=== PATIENT | male | born 1940 | race Caucasian/White ===

== ENCOUNTER → 2016-06-25 | Outpatient (CLI) | payer MEDICARE, BC ==
[~2016-06-25] MED LIST: ACULAR 10 ML10 ML OP; ASPIR-LOW81 MG PO; ASPIRIN 32325 MG/TA1 PO; ASPIRIN 81M81 MG/TA2 PO; ASPIRIN E.C. 8181 MG PO; ATENOLOL50 MG PO; CARDIZEM CD 12120 MG PO; CATAPRES-T0.3 MG/24 TD; CATAPRES-TTS 30.3 MG TD; CILOXAN 5 ML5 ML OP; COREG 25MG25 MG/TAB PO; COZAAR 50MG50 MG/TAB PO; FORTAMET500 MG PO; GLUCOPHAGE500 MG/TAB PO; HCTZ 25MG TAB25 MG PO; HCTZ 25MG25 MG PO; HYTRIN10 MG PO; INSULIN SQ; LANTUS100 U/ML SQ; LASIX 40MG TABL40 MG PO; LEVAQUIN 5500 MG/TA1 PO; LIPITOR 80MG80 MG PO; LISINOPRIL20 MG PO; MULTAQ400 MG PO; NEURONTIN100 MG/CAP PO; NITROSTAT0.4 MG/TAB SL; NOVOLOG 100U100 U/M1 SQ; NOVOLOG 100U100 U/ML SQ; OMNICEF 300MG300 MG PO; PERCOCET 325 MG1 TA2 PO; PLAVIX 75MG TAB75 MG PO; PLENDIL 2.5MG2.5 MG PO; PRILOSEC 20MG20 MG PO; REFRESH TEARS 115 ML OP; SYNTHROID0.075 MG/T PO; TERAZOSIN HCL PO; TYLENOL PM EXTR1 TA1 PO; TYLENOL PM PO; VALTREX 50500 MG/TAB PO; VENTOLIN0.09 MG IH; ZOCOR 40MG40 MG PO; ZOCOR 80MG80 MG PO; ZOCOR80 MG PO
== END ==
LOC: COL.RAD 08:02
DX: K30 Functional dyspepsia (principal); R13.19 Other dysphagia; K29.70 Gastritis, unspecified, without bleeding
CPT/HCPCS: A9541

== ENCOUNTER 2017-11-04 09:03 | Outpatient (CLI) | payer MEDICARE, BC ==
[~2017-11-04] VITALS: Ht 175.3 cm; Wt 108.3 kg
[~2017-11-04 09:03] MED LIST changes: +CORDARONE200 MG/TAB PO; +ELIQUIS 5MG PO; +HYTRIN10 M1 PO; +IMDUR 30MG30 MG/TAB PO; +INSLANT SQ; +NORCO 325 MG-51 TAB PO
[2017-11-04 09:45] VITALS: BP 110/78; PULSE 78; TEMP 98
[2017-11-04] MEDS ORDERED: LASIX 20MG TABL20 MG PO (09:47)
[2017-11-04] MEDS ORDERED: PROAIR HFA0.09 MG/AC IH (09:55)
[2017-11-04] MEDS ORDERED: ZYRTEC 10MG10 MG PO (09:56)
[2017-11-04] MEDS ORDERED: NORVASC 10MG10 MG PO (09:56)
[2017-11-04] MEDS ORDERED: FERROUS SU325 MG/TAB PO (09:57)
[2017-11-04] MEDS ORDERED: COZAAR100 MG PO (09:58)
[2017-11-04] MEDS ORDERED: NASONEX SPRAY17 GM NS (09:59)
[2017-11-04] MEDS ORDERED: HYTRIN10 M1 PO (10:04)
[2017-11-04] MEDS ORDERED: CEPHALEXIN500 M1 PO (10:29)
== END 2017-11-04 11:35 | disposition home or self-care (01) ==
LOC: COL.CAR 09:03
DX: I48.0 Paroxysmal atrial fibrillation (principal); R00.1 Bradycardia, unspecified; I25.10 Atherosclerotic heart disease of native coronary artery without angina pectoris; I73.9 Peripheral vascular disease, unspecified; I10 Essential (primary) hypertension; E11.9 Type 2 diabetes mellitus without complications; E78.5 Hyperlipidemia, unspecified; E03.9 Hypothyroidism, unspecified; G47.33 Obstructive sleep apnea (adult) (pediatric); M19.90 Unspecified osteoarthritis, unspecified site; G89.29 Other chronic pain; Z88.8 Allergy status to other drugs, medicaments and biological substances; Z79.82 Long term (current) use of aspirin; Z79.01 Long term (current) use of anticoagulants; Z79.4 Long term (current) use of insulin; Z87.891 Personal history of nicotine dependence; Z85.828 Personal history of other malignant neoplasm of skin; Z82.49 Family history of ischemic heart disease and other diseases of the circulatory system
CPT/HCPCS: 27124; C1764

== ENCOUNTER 2018-02-06 15:03 | Emergency (ER) | payer MEDICARE, BC ==
[~2018-02-06] VITALS: Ht 177.8 cm; Wt 104.1 kg
[~2018-02-06 15:03] MED LIST changes: +CEPHALEXIN500 M1 PO; +COZAAR100 MG PO; +FERROUS SU325 MG/TAB PO; +LASIX 20MG TABL20 MG PO; +NASONEX SPRAY17 GM NS; +NORVASC 10MG10 MG PO; +PROAIR HFA0.09 MG/AC IH; +ZYRTEC 10MG10 MG PO
[2018-02-06 15:06] VITALS: BP 135/60; TEMP 98.2
[2018-02-06 16:00] LABS: ALANINE AMINOTRANSFERASE 30 U/L (21-72); ALBUMIN 3.7 gm/dL (3.5-5.0); ALKALINE PHOSPHATASE 90 U/L (50-136); ANION GAP 12 mmol/L (7-16); AST,SGOT 17 U/L (15-37); BILIRUBIN,TOTAL 0.5 mg/dL (0.0-1.0); BLOOD UREA NITROGEN 25 mg/dL (9-20); CALCIUM 8.5 mg/dL (8.4-10.2); CARBON DIOXIDE 26 mmol/L (22-30); CHLORIDE 103 mmol/L (98-107); CREATININE, serum 1.64 mg/dL (0.66-1.25); GLUCOSE 142 mg/dL (74-106); POTASSIUM 4.5 mmol/L (3.4-5.0); SODIUM 141 mmol/L (137-145); TOTAL PROTEIN 6.8 gm/dL (6.4-8.2)
[2018-02-06 16:15] LABS: TROPONIN-I < 0.012 ng/mL (0.000-0.034)
[2018-02-06] MEDS ORDERED: KLOR-CON M1010 MEQ PO (16:38)
[2018-02-06 16:51] LABS: BASO % 0.6 % (0.0-2.0); EOS # 0.4 (0.0-0.7); EOS % 5.9 % (0-4.0); GRAN % 69.7 % (42.2-75.2); HEMOGLOBIN 10.8 g/dl (13.5-18.0); LYMPH # 1.1 (1.2-3.4); LYMPH % 15.7 % (20.0-51.0); MEAN CELL VOLUME 97 fl (80.0-100.0); MEAN CORPUSCULAR HEMOGLOBIN 31 pg (27.0-31.0); MEAN CORPUSCULAR HGB CONC 32 g/dl (33.0-37.0); MEAN PLATELET VOLUME 11.2 fl (7.4-10.4); MONO # 0.6 (0.1-0.6); MONO % 7.8 % (1.7-9.3); PLATELET COUNT 193 K/mm3 (130-400); RED BLOOD COUNT 3.47 M/mm3 (4.20-5.60); REDCELL DISTRIBUTION WIDTH-CV 13.2 % (11.5-14.5)
[2018-02-06 16:58] LABS: HEMATOCRIT 33.5 % (42.0-52.0)
[2018-02-06] MEDS ORDERED: NORCO 325 MG-51 TAB PO (17:21)
[2018-02-06 17:26] LABS: C-REACTIVE PROTEIN 0.8 mg/dL (0.0-0.9)
[2018-02-06 17:36] VITALS: PULSE 64
== END 2018-02-06 17:36 | disposition home or self-care (01) ==
LOC: COL.ER 15:03
PROVIDERS: Emergency Medicine
DX: M25.571 Pain in right ankle and joints of right foot (principal); E11.9 Type 2 diabetes mellitus without complications; I10 Essential (primary) hypertension; I48.91 Unspecified atrial fibrillation; I25.10 Atherosclerotic heart disease of native coronary artery without angina pectoris; Z79.01 Long term (current) use of anticoagulants; Z79.4 Long term (current) use of insulin; Z79.82 Long term (current) use of aspirin

== ENCOUNTER 2018-03-02 08:08 | Day surgery (SDC) | payer MEDICARE, BC ==
[~2018-03-02] VITALS: Ht 177.8 cm; Wt 104.5 kg
[2018-03-02] VITALS (11 sets, daily range): BP systolic 127–156; BP diastolic 61–88; PULSE 59–100; TEMP 97.5–98.4
[~2018-03-02 08:08] MED LIST changes: +KLOR-CON M1010 MEQ PO
[2018-03-02] MEDS ORDERED: CORDARONE200 MG/TAB PO (08:32)
[2018-03-02 09:05] LABS: HEMATOCRIT 33.1 % (42.0-52.0); HEMOGLOBIN 10.7 g/dl (13.5-18.0); MEAN CELL VOLUME 97 fl (80.0-100.0); MEAN CORPUSCULAR HEMOGLOBIN 31 pg (27.0-31.0); MEAN CORPUSCULAR HGB CONC 32 g/dl (33.0-37.0); MEAN PLATELET VOLUME 10.1 fl (7.4-10.4); PLATELET COUNT 225 K/mm3 (130-400); RED BLOOD COUNT 3.42 M/mm3 (4.20-5.60); REDCELL DISTRIBUTION WIDTH-CV 13.3 % (11.5-14.5)
[2018-03-02 09:08] LABS: INR 1.4 (0.8-3.0); PROTHROMBIN TIME 16.2 SECONDS (9.7-12.8)
[2018-03-02 09:14] LABS: CALCIUM 8.7 mg/dL (8.4-10.2); CREATININE, serum 1.8 mg/dL (0.66-1.25); POTASSIUM 4.9 mmol/L (3.4-5.0)
[2018-03-03 00:42] VITALS: BP 153/61; PULSE 77
[2018-03-03 05:41] VITALS: BP 118/52; PULSE 59
[2018-03-03 07:56] VITALS: BP 111/48; PULSE 60; TEMP 97.3
[2018-03-03] MEDS ORDERED: CEPHALEXIN500 M1 PO (10:21)
== END 2018-03-03 13:07 | disposition home or self-care (01) ==
LOC: COL.CAR 08:08 → MEDICAL 14:30 → COL.CAR 03-03 13:07
PROVIDERS: Internal Medicine Cardiovascular Disease
DX: I49.5 Sick sinus syndrome (principal); I25.10 Atherosclerotic heart disease of native coronary artery without angina pectoris; I48.91 Unspecified atrial fibrillation; I10 Essential (primary) hypertension; E78.5 Hyperlipidemia, unspecified; G90.01 Carotid sinus syncope; I73.9 Peripheral vascular disease, unspecified; G47.33 Obstructive sleep apnea (adult) (pediatric); Z88.8 Allergy status to other drugs, medicaments and biological substances
CPT/HCPCS: OP; C1769; C1785; C1894; C1898; J0690; J1815; J2250; J2405; J3010; J7030

== ENCOUNTER 2018-03-23 20:59 | Emergency (ER) | payer MEDICARE, BC ==
[~2018-03-23] VITALS: Ht 177.8 cm; Wt 99.5 kg
[2018-03-23 21:04] VITALS: TEMP 97.7
[2018-03-23 21:51] LABS: BASO % 0.2 % (0.0-2.0); EOS # 0.3 (0.0-0.7); EOS % 2.1 % (0-4.0); GRAN % 81.9 % (42.2-75.2); HEMATOCRIT 32.6 % (42.0-52.0); HEMOGLOBIN 10.6 g/dl (13.5-18.0); LYMPH # 0.9 (1.2-3.4); LYMPH % 7.7 % (20.0-51.0); MEAN CELL VOLUME 97 fl (80.0-100.0); MEAN CORPUSCULAR HEMOGLOBIN 32 pg (27.0-31.0); MEAN CORPUSCULAR HGB CONC 33 g/dl (33.0-37.0); MEAN PLATELET VOLUME 10.2 fl (7.4-10.4); MONO # 0.9 (0.1-0.6); MONO % 7.6 % (1.7-9.3); PLATELET COUNT 223 K/mm3 (130-400); RED BLOOD COUNT 3.35 M/mm3 (4.20-5.60); REDCELL DISTRIBUTION WIDTH-CV 13.8 % (11.5-14.5)
[2018-03-23 22:04] LABS: ALBUMIN 3.9 gm/dL (3.5-5.0); BILIRUBIN,TOTAL 0.7 mg/dL (0.0-1.0); C-REACTIVE PROTEIN 1.6 mg/dL (0.0-0.9); CREATININE, serum 1.9 mg/dL (0.66-1.25); POTASSIUM 4.9 mmol/L (3.4-5.0)
[2018-03-23] MEDS ORDERED: VALTREX1 GM PO (23:10)
[2018-03-23] MEDS ORDERED: CEPHALEXIN500 M1 PO (23:10)
[2018-03-23 23:56] VITALS: BP 148/73; PULSE 81
== END 2018-03-23 23:56 | disposition home or self-care (01) ==
LOC: COL.ER 20:59
PROVIDERS: Emergency Medicine
DX: B02.9 Zoster without complications (principal); L76.22 Postprocedural hemorrhage of skin and subcutaneous tissue following other procedure; E11.9 Type 2 diabetes mellitus without complications; I10 Essential (primary) hypertension; I48.91 Unspecified atrial fibrillation; Z95.0 Presence of cardiac pacemaker; Z79.82 Long term (current) use of aspirin; Z79.4 Long term (current) use of insulin
CPT/HCPCS: J0690; J7040

== ENCOUNTER 2020-04-10 20:01 | Emergency (ER) | payer MEDICARE, BC ==
[~2020-04-10] VITALS: Ht 175.3 cm; Wt 100.0 kg
[~2020-04-10 20:01] MED LIST changes: +ATARAX 25MG25 MG/TAB PO; +CATAPRES-TTS 10.1 M1 TD; +ELIQUIS 2.5 PO; +HYDROCORTISON28.4 GM TP; +MELATONIN5 M1 SL; +NEURONTIN300 MG/CAP PO; +PHARMASSURE ZIN50 MG PO; +PREDNISONE20 MG PO; +TYLENOL 325MG325 MG PO; +TYLENOL 500MG500 MG PO; +VALTREX1 GM PO; +VITD3 PO; +ZINC OXIDE 28GM TOP
[2020-04-10 20:07] VITALS: TEMP 96.2
[2020-04-10 21:30] VITALS: BP 161/64; PULSE 60
== END 2020-04-10 21:30 | disposition home or self-care (01) ==
LOC: COL.ER 20:01
DX: S00.83XA Contusion of other part of head, initial encounter (principal); Z95.0 Presence of cardiac pacemaker; Z98.61 Coronary angioplasty status; Z95.9 Presence of cardiac and vascular implant and graft, unspecified; Z87.891 Personal history of nicotine dependence; Z88.8 Allergy status to other drugs, medicaments and biological substances; Z79.01 Long term (current) use of anticoagulants; W10.1XXA Fall (on)(from) sidewalk curb, initial encounter; Y92.017 Garden or yard in single-family (private) house as the place of occurrence of the external cause

== ENCOUNTER 2020-04-24 12:16 | Outpatient (RCR) | payer MEDICARE, BC ==
[2020-04-24] VITALS (9 sets, daily range): BP systolic 127–153; BP diastolic 53–79; PULSE 59–61; TEMP 97.8–98.8
[2020-04-24] MEDS ORDERED: MASON NATURAL2000 IU PO (15:21)
== END 2020-04-24 19:12 | disposition home or self-care (01) ==
LOC: EUO 12:16
DX: C96.5 Multifocal and unisystemic Langerhans-cell histiocytosis (principal); D64.9 Anemia, unspecified
CPT/HCPCS: J7050; P9016

== ENCOUNTER 2020-06-19 13:06 | Outpatient (RCR) | payer MEDICARE, BC ==
[2020-06-19] VITALS (10 sets, daily range): BP systolic 115–144; BP diastolic 46–97; PULSE 60–89; TEMP 97.5–98.7
[~2020-06-19 13:06] MED LIST changes: +MASON NATURAL2000 IU PO
--- NOTE | 2020-06-19 17:56 | NUR ---
Report to Fawn Dixon.
[2020-06-24] MEDS ORDERED: NORCO 325 MG-51 TAB PO (12:05)
== END 2020-06-25 07:31 | disposition home or self-care (01) ==
LOC: EUO 13:06
DX: D76.3 Other histiocytosis syndromes (principal)
CPT/HCPCS: J7050; P9016

== ENCOUNTER 2020-06-24 08:59 | Day surgery (SDC) | payer MEDICARE, BC ==
[~2020-06-24] VITALS: Ht 177.8 cm; Wt 97.3 kg
[2020-06-24 10:12] VITALS: BP 129/56; PULSE 86; TEMP 98.7
[2020-06-24 11:03] VITALS: BP 112/50; PULSE 70
--- NOTE | 2020-06-24 11:03 | NUR ---
Patient returns to room 2 per cart from surgery accompanied by Fernandez RN and Junior HIRSCH. Arouses to verbal stimuli. Room air sats 88% and placed on 6L per simple mask by Junior HIRSCH. Right port a catheter insertion site covered with Exofen dressing and area soft and wound edges well approximated. IV fluids infusing and siderails up x2. Will allow patient to rest.
[2020-06-24 11:18] VITALS: BP 158/64; PULSE 63
--- NOTE | 2020-06-24 11:18 | NUR ---
Patient continues to rest without complaints of pain and remains on oxygen at 6L per mask.
[2020-06-24 11:33] VITALS: BP 170/64; PULSE 59
--- NOTE | 2020-06-24 11:33 | NUR ---
Resting and not disturbed.
[2020-06-24] MEDS ORDERED: NORCO 325 MG-51 TAB PO (12:05)
[2020-06-24 12:58] VITALS: BP 164/64; PULSE 60
--- NOTE | 2020-06-24 12:58 | NUR ---
Awake and oxygen removed. Given applesauce to eat and grape juice to drink. Denies pain. Right port a catheter site soft and no drainage or bleeding noted.
--- NOTE | 2020-06-24 13:10 | NUR ---
Sitting up on the edge of the cart. IV discontinued and site is free of redness. Assisted patient with dressing. ABD and kerlix dressing on the right lower extremity dry. Sent home with extra dressing supplies to change as needed.
--- NOTE | 2020-06-24 13:45 | NUR ---
Dismissal instructions given and voices understanding of these. Assisted into wheelchair using walker.
--- NOTE | 2020-06-24 13:57 | NUR ---
Patient dismissed to home driven by friend and assisted into vehicle by this RN with instructions in hand.
--- NOTE | 2020-07-02 16:18 | NUR ---
(late entry) Light Oil Operator consulted for the patient. ELENITA met with the patient to discuss his needs. The patient reports the [facility] nurse visit approximately every 3 months. He report he also has a Light Oil Operator, Dietitian, and PA that follow for the [facility]. The patient discharged from [facility] on April 09, 2020. The patient has a wheelchair, lift chair. The patient is able to transfer on his own but uses a walker to assist. He reports plenty of support from neighbors and his members of the [facility]. They assist giving the patient rides. The patient would like to have [facility] for home health again. Referral faxed. He would also like the [facility] to visit more frequently. Larissa the [facility] Light Oil Operator reports the patient will be getting more services. Larissa reports the patient had not expressed the need for additional service before. Referral was sent to [facility]. Debra from [facility] reports she contacted the VA and was told that they would provide more services. ELENITA contacted Mona with [facility] and they could accept the patient but the patient stated that he would like the [facility] to provide the services.
== END 2020-06-24 13:57 | disposition home or self-care (01) ==
LOC: SDCO 08:59
DX: C96.6 Unifocal Langerhans-cell histiocytosis (principal); I13.0 Hypertensive heart and chronic kidney disease with heart failure and stage 1 through stage 4 chronic kidney disease, or unspecified chronic kidney disease; E11.40 Type 2 diabetes mellitus with diabetic neuropathy, unspecified; E11.22 Type 2 diabetes mellitus with diabetic chronic kidney disease; N18.30 Chronic kidney disease, stage 3 unspecified; I25.10 Atherosclerotic heart disease of native coronary artery without angina pectoris; Z20.822 Contact with and (suspected) exposure to COVID-19; E11.51 Type 2 diabetes mellitus with diabetic peripheral angiopathy without gangrene; D63.0 Anemia in neoplastic disease; D63.1 Anemia in chronic kidney disease; I48.91 Unspecified atrial fibrillation; E03.9 Hypothyroidism, unspecified; G47.33 Obstructive sleep apnea (adult) (pediatric); K21.9 Gastro-esophageal reflux disease without esophagitis; G47.00 Insomnia, unspecified; G89.29 Other chronic pain; M25.561 Pain in right knee; Z79.890 Hormone replacement therapy; Z95.0 Presence of cardiac pacemaker; Z79.82 Long term (current) use of aspirin; Z79.01 Long term (current) use of anticoagulants; Z79.4 Long term (current) use of insulin; Z85.828 Personal history of other malignant neoplasm of skin; Z79.02 Long term (current) use of antithrombotics/antiplatelets; Z79.899 Other long term (current) drug therapy; Z85.820 Personal history of malignant melanoma of skin
CPT/HCPCS: C1788; J0690; J1644; J2704; J3010; J7030

== ENCOUNTER 2020-07-02 14:51 | Emergency (ER) | payer MEDICARE, BC ==
[~2020-07-02] VITALS: Ht 175.3 cm; Wt 97.3 kg
[2020-07-02 16:09] LABS: MEAN CELL VOLUME 91 fl (80.0-100.0); MEAN CORPUSCULAR HGB CONC 31 g/dl (33.0-37.0); MEAN PLATELET VOLUME 9.9 fl (7.4-10.4); PLATELET COUNT 383 K/mm3 (130-400); RED BLOOD COUNT 3.14 M/mm3 (4.20-5.60); REDCELL DISTRIBUTION WIDTH-CV 17.1 % (11.5-14.5)
[2020-07-02 16:14] LABS: HEMATOCRIT 28.7 % (42.0-52.0); HEMOGLOBIN 8.8 g/dl (13.5-18.0); MEAN CORPUSCULAR HEMOGLOBIN 28 pg (27.0-31.0)
[2020-07-02 16:17] LABS: ALBUMIN 2.5 gm/dL (3.5-5.0); BILIRUBIN,TOTAL 0.5 mg/dL (0.0-1.0); CALCIUM 9.5 mg/dL (8.4-10.2); CREATININE, serum 2.18 (0.66-1.25); TOTAL PROTEIN 5.3 gm/dL (6.4-8.2)
--- NOTE | 2020-07-02 16:28 | NUR ---
Semiconductor Wafers Tester consulted for the patient regarding assistance for care at home for leg and bottom wounds. ELENITA contacted Debra with [facility] to inquire about the [facility] contacting them regarding services. Debra states the VA has reached out to them for bathe aides and companionship services. ELENITA discussed the need for home health nursing services. Debra to contact the patient's PCP in order to start nursing services for the patient's needs. She will follow up with this SW on 07/03. ELENITA voiced the urgency to have a nurse follow up with the patient. ELENITA contacted and left message with Larissa, the VA SW regarding the urgency and seriousness of following up with the patient. ELENITA collaborated the above information with the ED PA.
[2020-07-02 16:37] LABS: BAND 2 % (0-10); LYMPHOCYTE 9 % (20.0-51.0); NEUTROPHILS 81 % (42.0-75.2)
[2020-07-02 16:38] LABS: HYPOCHROMIA 3+; PLATELET ESTIMATE NORMAL (NORMAL)
[2020-07-02 16:39] LABS: ANISOCYTOSIS 1+
[2020-07-02 16:40] LABS: BURR CELLS 1+
[2020-07-02 16:44] LABS: SCHISTOCYTES 1+; SPHEROCYTE 1+
[2020-07-02 17:52] LABS: COLLECTION METHOD CLEAN CATCH
[2020-07-02 18:06] LABS: PH 6 (5-8); SQUAMOUS EPITHELIAL None Seen /hpf; URINE APPEARANCE Clear; URINE BACTERIA None Seen /hpf; URINE BILIRUBIN Negative (NEGATIVE); URINE BLOOD Negative (NEGATIVE); URINE COLOR Yellow; URINE GLUCOSE 1+ (NEGATIVE); URINE KETONE Negative (NEGATIVE); URINE LEUKOCYTE ESTERASE Negative (NEGATIVE); URINE NITRATE Negative (NEGATIVE); URINE PROTEIN(semi-quant) 1+ (NEGATIVE); URINE RBC 0-2 /hpf; URINE UROBILINOGEN Negative (NEGATIVE)
[2020-07-02 19:03] VITALS: BP 136/74; PULSE 76; TEMP 98.6
[2020-07-03 08:19] LABS: PATHOLOGY DIFF REVIEW OK
--- NOTE | 2020-07-03 13:58 | NUR ---
Customer Success Associate was contacted by Helen from [facility]. She reports she has been trying to get in contact with the [facility] in [place] all day with no luck. Helen requested ED updates form 07/02, ELENITA faxed updates. Helen reports they have been trying to get contact the patient with no luck. They may be able to visit the patient tomorrow 07/04 if he answers his phone. TRUDI Dias left message for this SW regarding the patient. ELENITA attempted to contact Larissa left message.
== END 2020-07-02 19:04 | disposition home or self-care (01) ==
LOC: COL.ER 14:51
PROVIDERS: Nurse Practitioner
DX: C96.6 Unifocal Langerhans-cell histiocytosis (principal); I10 Essential (primary) hypertension; E11.9 Type 2 diabetes mellitus without complications; I25.10 Atherosclerotic heart disease of native coronary artery without angina pectoris; E03.9 Hypothyroidism, unspecified; N40.0 Benign prostatic hyperplasia without lower urinary tract symptoms; Z95.0 Presence of cardiac pacemaker; Z88.8 Allergy status to other drugs, medicaments and biological substances; Z87.891 Personal history of nicotine dependence; Z79.01 Long term (current) use of anticoagulants; Z79.4 Long term (current) use of insulin; Z79.890 Hormone replacement therapy

== ENCOUNTER 2020-07-08 15:36 | Inpatient (IN) | payer MEDICARE, BC ==
[~2020-07-08] VITALS: Ht 175.3 cm; Wt 96.2 kg
[2020-07-08 16:57] LABS: BASO % 0.1 % (0.0-2.0); EOS # 0.1 (0.0-0.7); EOS % 0.6 % (0-4.0); GRAN # 7.2 (1.4-6.5); GRAN % 78.9 % (42.2-75.2); LYMPH # 0.5 (1.2-3.4); LYMPH % 5.5 % (20.0-51.0); MEAN CELL VOLUME 91 fl (80.0-100.0); MEAN CORPUSCULAR HGB CONC 31 g/dl (33.0-37.0); MONO # 1.3 (0.1-0.6); MONO % 13.9 % (1.7-9.3); PLATELET COUNT 114 K/mm3 (130-400); RED BLOOD COUNT 2.63 M/mm3 (4.20-5.60)
[2020-07-08 16:58] LABS: HEMATOCRIT 23.9 % (42.0-52.0); HEMOGLOBIN 7.3 g/dl (13.5-18.0); MEAN CORPUSCULAR HEMOGLOBIN 28 pg (27.0-31.0)
[2020-07-08 17:12] LABS: ALBUMIN 2.6 gm/dL (3.5-5.0); BILIRUBIN,TOTAL 0.6 mg/dL (0.0-1.0); CALCIUM 10.2 mg/dL (8.4-10.2); CREATININE, serum 2.38 (0.66-1.25); POTASSIUM 4.9 mmol/L (3.4-5.0); TOTAL PROTEIN 5.3 gm/dL (6.4-8.2)
[2020-07-08] MEDS ORDERED: COZAAR 50MG50 MG/TAB PO ×2 (19:42→19:45)
[2020-07-08] MEDS ORDERED: LASIX 40MG TABL40 MG PO (19:45)
[2020-07-08] MEDS ORDERED: LIDEX CR 15GM TP (19:46)
[2020-07-08] MEDS ORDERED: QUALITY CHOI500 U/GM TOP (19:46)
[2020-07-08] MEDS ORDERED: ANUSOL HC CREAM30 GM TP (19:47)
[2020-07-08] MEDS ORDERED: MELATONIN5 M1 SL (19:48)
[2020-07-08] MEDS ORDERED: MIRALAX PA17 GM/Dose PO (19:49)
[2020-07-08] MEDS ORDERED: ZINC OXIDE56.7 GM TP (19:49)
[2020-07-08] MEDS ORDERED: BACTROBAN 22GM22 GM NAS (19:49)
--- NOTE | 2020-07-08 20:10 | NUR ---
To room 311 via gurney. Assisted to bed x 2 assist. Admission assessment complete. MARY Jordan at bedside to assess pressure ulcer on buttocks. Noted to have one Stage II pressure ulcer to right buttock-Avellyn dressing applied. Stage 1 pressure ulcer to left buttock-Avellyn dressing CDI. Also noted to have two quarter size ulcers to right calf. Culture sent per dr order. Dressing applied to area-nonadherent [id number]. Redness to both bilat lower ext up to calf-erythema/swelling/+3 edema to right lower extremity. +2 edema to left lower extremity.
[2020-07-08 20:20] VITALS: BP 177/67; PULSE 77; TEMP 97.5
[2020-07-09] VITALS (14 sets, daily range): BP systolic 112–174; BP diastolic 44–73; PULSE 57–82; TEMP 97.2–98.1
--- NOTE | 2020-07-09 00:30 | NUR ---
Resting eyes closed. No s/s of pain noted. Call light in reach. Will monitor.
[2020-07-09 01:39] LABS: COLLECTION METHOD CLEAN CATCH
[2020-07-09 01:51] LABS: PH 7 (5-8); SQUAMOUS EPITHELIAL None Seen /hpf; URINE APPEARANCE Clear; URINE BACTERIA Rare /hpf; URINE BILIRUBIN Negative (NEGATIVE); URINE BLOOD Negative (NEGATIVE); URINE COLOR Straw; URINE GLUCOSE Negative (NEGATIVE); URINE KETONE Negative (NEGATIVE); URINE LEUKOCYTE ESTERASE Negative (NEGATIVE); URINE NITRATE Negative (NEGATIVE); URINE PROTEIN(semi-quant) Negative (NEGATIVE); URINE RBC 0-2 /hpf; URINE UROBILINOGEN Negative (NEGATIVE)
--- NOTE | 2020-07-09 04:00 | NUR ---
Resting eyes closed/no s/s of pain/discomfort noted. External male cath draining well. Call light in reach. Will monitor.
--- NOTE | 2020-07-09 05:54 | NUR ---
Resting in bed eyes closed. AM labs drawn off port without difficulty. States he slept well last night-states he hadnt slept in days and finally did get some restful sleep last night. Denies pain/nausea/shortness of breath. VS remained stable. Call light in reach. Will monitor.
[2020-07-09 07:32] LABS: BASO % 0.1 % (0.0-2.0); EOS # 0.1 (0.0-0.7); EOS % 1.3 % (0-4.0); GRAN # 5.7 (1.4-6.5); GRAN % 77.1 % (42.2-75.2); LYMPH # 0.5 (1.2-3.4); LYMPH % 7.1 % (20.0-51.0); MEAN CELL VOLUME 92 fl (80.0-100.0); MEAN CORPUSCULAR HGB CONC 31 g/dl (33.0-37.0); MEAN PLATELET VOLUME 10.7 fl (7.4-10.4); MONO % 13.7 % (1.7-9.3); PLATELET COUNT 100 K/mm3 (130-400); RED BLOOD COUNT 2.58 M/mm3 (4.20-5.60); REDCELL DISTRIBUTION WIDTH-CV 16.9 % (11.5-14.5)
[2020-07-09 07:40] LABS: CALCIUM 9.6 mg/dL (8.4-10.2); CREATININE, serum 2.44 (0.66-1.25); POTASSIUM 4.8 mmol/L (3.4-5.0)
[2020-07-09 07:41] LABS: HEMATOCRIT 23.6 % (42.0-52.0); HEMOGLOBIN 7.2 g/dl (13.5-18.0); MEAN CORPUSCULAR HEMOGLOBIN 28 pg (27.0-31.0)
--- NOTE | 2020-07-09 10:21 | NUR ---
Assessment complete. PAtient asleep on entry, awoke easily to verbal stimulation. PAtient is completely alert and oriented at this time but wincing and moaning in pain. PRN Morphine was administered to the patient at this time. Patient was feeling relief prior to my departure from the room. Leg dressing are CD&I at this time, will continue to monitor and change prior to shift change. Port site is CD&I flushed with no issues. Patient did not want to eat breakfast this morning. He did have some juice with his pills and took them well with no issues. Will continue to monitor. CAll light is in reach.
--- NOTE | 2020-07-09 12:52 | NUR ---
Patient was sleeping. Head Neck Surgeon prayed for patient outside their door.
--- NOTE | 2020-07-09 14:41 | NUR ---
Pipefitter Helper met with patient to discuss discharge planning. Patient lives alone in [place] but reports that his son, William (ph#[phone]) visits him after every five day session of chemotherapy. Patient follows with Dr. Hay, Oncologist and sees LAVON Granados from the [facility] for primary care. Patient is a part of the home based primary care program through the [facility]. Patient has medications mailed to him from the [facility]. Patent has a cane, walker, and lift chair at home along with grab bars in his bathroom. Patient reports he has [facility] games and has had a couple visits from their RN, Lindsay who encouraged him to come to the hospital. Patient states he also recently started receiving services from [facility] for assistance with household duties. SW reviewed PT recommendation for Home Health vs Post Acute Rehab. Patient states he is not interested in rehab at this time and feels he has sufficent supports lined up at home. ELENITA contacted Mona at [facility] and faxed updates. Mona advised they started nursing but didn't get a chance to do the PT eval as patient was hospitalized. Mona advised they would continue to provide services upon discharge. ELENITA contacted [facility] ELENITA and left a message. ELENITA then contacted patient's son, William who is supportive of patient remaining at home and advised he has been working hard to set up in home supports like [employer]. William advised patient also has a great support network of friends. William advised that patient lives in a ranch style home and does not utilize the basement for anything. William advised he felt like the [facility] "dragged their feet" on getting things set up but William states he has been very impressed with [facility].
--- NOTE | 2020-07-09 16:55 | NUR ---
Patient has had a good day, he has slept most of the shift. He did eat some fruit on his lunch tray but is otherwise uninterested in food at the time. Dressing on right calf was changed, this was painful for the patient but he tolerated well and pain was gone when done moving leg. Blood continues to infuse and is close to finishing at this time. Continuing to monitor vital signs per protocol. Patient denies other needs at this time. Call light is in reach.
--- NOTE | 2020-07-09 21:25 | NUR ---
Patient assessed at this time. Alert and oriented x 4, and able to make needs known. Reported level 7 pain to BLE. Given PRN Morphine for pain. Port to right chest flushed. Site without redness, warmth, swelling, and pain. Blood return. Denies having SOB and dyspnea. LS expiratory wheezes in upper lobes, diminished in lower. Respirations even and unlabored. HRR. Capillary refill less than 3 seconds. Non-tenting skin turgor. BSAx4. Abdomen soft and non-tender. Redness/warmth/swelling/tenderness to BLE. 2+ edema LLE, 3+ RLE. Dressing to open blisters on RLE CDI. S2 ulcer to right buttock, S1 to left buttock. Excoriation to groing. Desenex powder applied. External catheter patent, clear yellow urine. Voices no questions, needs, or concerns at this time. Resting in bed with call light within reach.
[2020-07-10 04:26] VITALS: BP 135/58; PULSE 88; TEMP 97.3
--- NOTE | 2020-07-10 05:46 | NUR ---
Patient has had no further complaints of pain or discomfort this shift. Has been resting in bed with call light within reach. Labs obtained from PORT per protocol. Voices no questions, needs, or concerns at this time.
[2020-07-10 06:33] LABS: EOS # 0.1 (0.0-0.7); EOS % 0.9 % (0-4.0); GRAN # 7.2 (1.4-6.5); GRAN % 83.5 % (42.2-75.2); HEMATOCRIT 25.1 % (42.0-52.0); HEMOGLOBIN 7.8 g/dl (13.5-18.0); LYMPH # 0.5 (1.2-3.4); MEAN CELL VOLUME 90 fl (80.0-100.0); MEAN CORPUSCULAR HEMOGLOBIN 28 pg (27.0-31.0); MEAN CORPUSCULAR HGB CONC 31 g/dl (33.0-37.0); MEAN PLATELET VOLUME 10.5 fl (7.4-10.4); MONO # 0.8 (0.1-0.6); PLATELET COUNT 101 K/mm3 (130-400); RED BLOOD COUNT 2.78 M/mm3 (4.20-5.60); REDCELL DISTRIBUTION WIDTH-CV 17.4 % (11.5-14.5)
[2020-07-10 06:40] LABS: CALCIUM 9.1 mg/dL (8.4-10.2); CREATININE, serum 2.49 (0.66-1.25)
--- NOTE | 2020-07-10 07:49 | NUR ---
BEDSIDE REPORT RECIEVED FROM ANTONIO CHOW. PATIENT IS SITTING UP IN BED EATING AT THIS TIME. DENIES ANY PAIN OR DISCOMFORT. DENIES ANY FURTHER NEEDS AT THIS TIME. WILL CONTINUE TO MONITOR. BED IN LOWEST POSITION. CALL LIGHT WITHIN REACH.
[2020-07-10 08:09] VITALS: BP 116/49; PULSE 80; TEMP 98.2
[2020-07-10 12:00] VITALS: BP 109/49; PULSE 85; TEMP 98.1
[2020-07-10 15:36] VITALS: BP 145/51; PULSE 86; TEMP 98
--- NOTE | 2020-07-10 16:46 | NUR ---
Regroover collaborated with FRANCHESCA Macias who advised patient will need post acute rehab upon discharge and that home is not a good plan. SW also was in contact with ELENITA Dias at the [facility] who advised their team agrees that patient needs rehab placement. SW spoke with patient's son, William who requested an IPR screening. SW discussed referrals for a second preference. William would like to know what outcome of IPR screen is before deciding on a second preference, but will speak with patient about it.
--- NOTE | 2020-07-10 18:35 | NUR ---
PATIENT IS RESTING IN BED AT THIS TIME. HYDROCODONE GIVEN FOR PAIN OF 6/10. PATIENT STATED THAT MEDICATION HELPED. PATIENT PLACED ON AIR MATTRESS TO PREVENT FURTHER SKIN BREAKDOWN. PATIENT DENIES ANY FURTHER NEEDS AT THIS TIME. FALL PERCAUTIONS IN PLACE. CALL LIGHT WITHIN REACH.
[2020-07-10 19:20] VITALS: BP 166/64; PULSE 78; TEMP 97.3
--- NOTE | 2020-07-10 20:25 | NUR ---
Patient assessed at this time. Alert and oriented, and able to make needs known. Denies having pain and discomfort at this time. Port to right chest. Good blood return and flushed. Site without redness, warmth, swelling, and pain. Denies having SOB and dyspnea. LS CTA in upper lobes, diminished in lower. Respirations even and unlabored. HRR. Telemetry in place. Capillary refill less than 3 seconds. Non-tenting skin turgor. BSAx4. Abdomen soft and non-tender. 3+ edema RLE. RLE continues to be very red, warm, and tender. Dressing to RLE CDI. Dressing to right heel CDI. Heel protector on left heel. Dressings to coccyx CDI. Repositioned in bed. Excoriation to groin continues. External catheter working well with clear yellow urine. Denies having any questions, needs, or concerns at this time. Resting in bed with call light within reach.
--- NOTE | 2020-07-10 21:20 | NUR ---
Patient declined insulin at this time due to blood sugar of 119 and not wanting BS to drop during the night.
[2020-07-10 23:50] VITALS: BP 150/62; PULSE 76; TEMP 97.5
--- NOTE | 2020-07-11 00:10 | NUR ---
Patient given PRN [place] for pain as requested.
[2020-07-11 04:30] VITALS: BP 154/56; PULSE 91; TEMP 97.5
--- NOTE | 2020-07-11 05:56 | NUR ---
Patient has been resting in bed with call light within reach. Staff provided repositioning in bed. External catheter remains in place. Received PRN [place] once during the night for pain as requested. Voices no further questions, needs, or concerns at this time. Resting in bed with call light within reach.
[2020-07-11 06:56] LABS: CALCIUM 9.2 mg/dL (8.4-10.2); CREATININE, serum 2.44 (0.66-1.25); POTASSIUM 4.3 mmol/L (3.4-5.0)
[2020-07-11 07:00] LABS: MEAN CELL VOLUME 92 fl (80.0-100.0); MEAN CORPUSCULAR HGB CONC 31 g/dl (33.0-37.0); PLATELET COUNT 66 K/mm3 (130-400); RED BLOOD COUNT 2.71 M/mm3 (4.20-5.60)
[2020-07-11 07:03] LABS: HEMATOCRIT 24.9 % (42.0-52.0); HEMOGLOBIN 7.6 g/dl (13.5-18.0); MEAN CORPUSCULAR HEMOGLOBIN 28 pg (27.0-31.0)
--- NOTE | 2020-07-11 07:08 | NUR ---
PATIENT IS RESTING IN BED CURRENTLY. PATIENT DOES NOT COMPLAIN OF ANY PAIN OR DISCOMFORT AT THIS TIME. PATIENT DENIES ANY NEEDS. WILL CONTINUE TO MONITOR. FALL PERCAUTIONS IN PLACE. CALL LIGHT WITHIN REACH.
[2020-07-11 07:22] VITALS: BP 134/59; PULSE 86; TEMP 98.1
[2020-07-11 07:34] LABS: BAND 2 % (0-10); EOSINOPHIL 1 % (0-4); LYMPHOCYTE 1 % (20.0-51.0); NEUTROPHILS 95 % (42.0-75.2)
[2020-07-11 07:35] LABS: PLATELET ESTIMATE DECREASED (NORMAL)
[2020-07-11 11:25] VITALS: BP 109/56; PULSE 98; TEMP 97.7
--- NOTE | 2020-07-11 13:54 | NUR ---
DRESSING CHANGE COMPLETED ON PATIENT. PATIENT TOLERATED THE PROCEDURE WELL. PATIENT DOES NOT C/O ANY PAIN OR DISCOMFORT AT THIS TIME. WILL CONTINUE TO MONITOR. FALL PERCAUTIONS IN PLACE. CALL LIGHT WITHIN REACH.
[2020-07-11 16:06] VITALS: BP 103/62; PULSE 82; TEMP 97.6
--- NOTE | 2020-07-11 16:36 | NUR ---
Disease Intervention Specialist followed up with [facility] Director about screening. SW met with patient to discuss second preference for rehab placement. Patient would like a referral sent to [facility]. ELENITA contacted Anita at [facility] and faxed referral. ELENITA also left a message for RN at Dr. Hay's office to review discharge plan. ELENITA contacted Anita at [facility] who advised they can accept patient but would also want more follow up on patient's declining platelet count. ELENITA contacted patient's son, William to provide update. ELENITA also contacted Hospitalist and requested he contact William with an update.
--- NOTE | 2020-07-11 17:17 | NUR ---
PATIENT IS RESTING IN BED AT THIS TIME. SCHEDULED MEDS GIVEN. PATIENT DENIES ANY PAIN OR DISCOMFORT AT THIS TIME. PATIENT DENIES ANY NEEDS AT THIS TIME. WILL CONTINUE TO MONITOR. FALL PERCAUTIONS IN PLACE. CALL LIGHT WITHIN REACH.
[2020-07-11 20:25] VITALS: BP 146/61; PULSE 92; TEMP 97.4
--- NOTE | 2020-07-11 20:30 | NUR ---
Patient assessed at this time. Alert and oriented x 4, and able to make needs known. Denies having pain and discomfort at this time. Port to right chest with blood return and flushed. Site without redness, warmth, swelling, and pain. Denie shaving SOB and dsypnea. LS CTA in upper lobes, diminished in lower. Respirations even and unlabored. HRR. Capillary refill less than 3 seconds. Non-tenting skin turgor. BSAx4. Abdomen soft and non-tender. 2+ edema continues to RLE, along with redness, warmth, and tenderness. Dressings to right calf, bottom, and right heel CDI. Voices no questions, needs, or concerns at this time. New external male catheter applied. Resting in bed with call light within reach.
[2020-07-11 23:28] VITALS: BP 156/62; PULSE 86; TEMP 97.6
[2020-07-12 04:29] VITALS: BP 165/59; PULSE 84; TEMP 97.5
--- NOTE | 2020-07-12 05:40 | NUR ---
Patient has been resting in bed with call light wihtin reach. Denies having pain and discomfort at this time. Voices no questions, needs, or concerns at this time. Has denied having pain and discomfort this shift.
--- NOTE | 2020-07-12 07:15 | NUR ---
PATIENT LYING IN BED AWAKE AT THIS TIME. DOES NOT C/O ANY PAIN OR DISCOMFORT AT THIS TIME. DID REQUEST A GRAPE JUICE BECAUSE HE FELT HIS BLOOD SUGAR WAS GETTING TOO LOW. BS CHECKED AND WAS 100. PATIENT DRANK GRAPE JUICE. WILL RECHECK BS. PATIENT DENIES HAVING ANY FURTHER NEEDS AT THIS TIME. WILL CONTINUE TO MONITOR. FALL PERCAUTIONS IN PLACE. CALL LIGHT DONNIE SUAREZ.
[2020-07-12 08:08] LABS: EOS # 0.1 (0.0-0.7); EOS % 2.7 % (0-4.0); GRAN # 4.4 (1.4-6.5); GRAN % 84.7 % (42.2-75.2); HEMATOCRIT 23.3 % (42.0-52.0); HEMOGLOBIN 7.3 g/dl (13.5-18.0); LYMPH # 0.5 (1.2-3.4); LYMPH % 8.9 % (20.0-51.0); MEAN CELL VOLUME 90 fl (80.0-100.0); MEAN CORPUSCULAR HEMOGLOBIN 28 pg (27.0-31.0); MEAN CORPUSCULAR HGB CONC 31 g/dl (33.0-37.0); MEAN PLATELET VOLUME 10.8 fl (7.4-10.4); MONO # 0.2 (0.1-0.6); MONO % 2.9 % (1.7-9.3); REDCELL DISTRIBUTION WIDTH-CV 16.7 % (11.5-14.5)
[2020-07-12 08:09] LABS: PLATELET COUNT 42 K/mm3 (130-400)
[2020-07-12 08:11] VITALS: BP 148/70; PULSE 87; TEMP 98
[2020-07-12 08:19] LABS: CALCIUM 9.3 mg/dL (8.4-10.2); CREATININE, serum 2.51 (0.66-1.25); MAGNESIUM 2.1 mg/dL (1.6-2.3); POTASSIUM 4.4 mmol/L (3.4-5.0)
--- NOTE | 2020-07-12 10:48 | NUR ---
NORCO GIVEN FOR PAIN LOCATED IN BLE. PAIN RATED AN 8/10 AND IS AGGRAVATED BY MOVEMENT. PATIENT IS RESTING IN BED AT THIS TIME. DENIES ANY FURTHER NEEDS. WILL CONTINUE TO MONITOR. FALL PERCAUTIONS IN PLACE. CALL LIGHT WITHIN REACH.
[2020-07-12 12:17] VITALS: BP 149/68; PULSE 85; TEMP 98.1
--- NOTE | 2020-07-12 13:40 | NUR ---
PATIENT SITTING UP IN BED EATING AT THIS TIME. PATIENT C/O PAIN IN HIS RIGHT LEG. NORCO GIVEN FOR THIS PAIN. WILL CONTINUE TO MONITOR. FALL PERCAUTIONS IN PLACE. CALL LIGHT DONNIE SUAREZ.
--- NOTE | 2020-07-12 15:28 | NUR ---
PATIENT'S DRESSING CHANGED. TOLERATED WELL. PATIENT STATES THAT ELEVATING HIS LEGS HELPS GREATLY WITH THE PAIN. PATIENT DENIES ANY PAIN OR DISCOMFORT AT THIS TIME. PATIENT DENIES ANY FURTHER NEEDS. WILL CONTINUE TO MONITOR. FALL PERCAUTIONS IN PLACE. CALL LIGHT WITHIN REACH.
--- NOTE | 2020-07-12 17:25 | NUR ---
Patient is resting in bed at this time. Patient states that his pain has vastly improved from yesterday. He is currently taking [place] PRN for pain in his right leg. Patient states that propping his legs up on a pillow has helped. Patient denies any pain or discomfort at this time. Patient denies any further needs. Will continue to monitor. Fall percautions in place. Call light within reach.
[2020-07-12 17:54] VITALS: BP 153/64; PULSE 84; TEMP 98
--- NOTE | 2020-07-12 19:05 | NUR ---
Received report from Angela. Patient asleep. Bed alarm on. Call light within reach.
[2020-07-12 19:50] VITALS: BP 138/52; PULSE 79; TEMP 97.6
--- NOTE | 2020-07-12 20:00 | NUR ---
Patient awake. Assesment done. With port on right chest, flushes well with blood return. He denies pain. He states that he is happy that his pain on his legs is getting better. Asked him for his pain score and states it's zero. External catheter draining clear, yellow urine. He refuses his Insulin and Melatonin. He states he doesn't want to be dependent on them and will call if he cannot sleep later and might need the Melatonin but for now he refuses.
[2020-07-13 00:32] VITALS: BP 169/68; PULSE 85; TEMP 98.1
[2020-07-13 04:18] VITALS: BP 154/64; PULSE 85; TEMP 97.9
--- NOTE | 2020-07-13 04:44 | NUR ---
Patient denies pain right now. New external catheter placed. Tip of his penis is sore and red. Offered to change his dressing on his buttocks but he said to do it in the morning.
[2020-07-13 06:35] LABS: MEAN CELL VOLUME 92 fl (80.0-100.0); MEAN CORPUSCULAR HGB CONC 31 g/dl (33.0-37.0); MEAN PLATELET VOLUME 11.4 fl (7.4-10.4); RED BLOOD COUNT 2.48 M/mm3 (4.20-5.60); REDCELL DISTRIBUTION WIDTH-CV 16.7 % (11.5-14.5)
[2020-07-13 06:44] LABS: HEMATOCRIT 22.9 % (42.0-52.0); MEAN CORPUSCULAR HEMOGLOBIN 28 pg (27.0-31.0)
[2020-07-13 06:46] LABS: PLATELET COUNT 38 K/mm3 (130-400)
[2020-07-13 06:53] LABS: CALCIUM 9.2 mg/dL (8.4-10.2); CREATININE, serum 2.39 (0.66-1.25); POTASSIUM 4.2 mmol/L (3.4-5.0)
--- NOTE | 2020-07-13 06:53 | NUR ---
Patient resting in bed at this time. Patient does not C/O any pain or discomfort at this time. Denies any further needs. Will continue to monitor. Fall percautions in place. Call light within reach.
[2020-07-13 07:11] LABS: EOS # 0.3 (0.0-0.7); EOS % 4.2 % (0-4.0); GRAN # 5.7 (1.4-6.5); GRAN % 87.7 % (42.2-75.2); LYMPH # 0.4 (1.2-3.4); LYMPH % 6.3 % (20.0-51.0); MONO # 0.1 (0.1-0.6); MONO % 1.5 % (1.7-9.3)
[2020-07-13 07:43] VITALS: BP 148/66; PULSE 78; TEMP 97.7
[2020-07-13 11:36] VITALS: BP 163/53; PULSE 78; TEMP 97.9
--- NOTE | 2020-07-13 11:52 | NUR ---
Patient continues to have platlet count drop. is holding Eliquis today 07/13 and test levels tomorrow 07/14. No changes to plan of care today. Please send record updates 07/14. Social work will continue to follow.
--- NOTE | 2020-07-13 14:17 | NUR ---
Patient resting in bed at this time. Performed dressing change on sacral area. Stage 2 ulcer cleaned with NS flush and dressed with a sacral cushion dressing. Right calf dressing performed on Stage 2 ulcers. Cleaned with NS flush and dressed with 2 4x4 Tegaderm, ABD pad, and Gauze wrap. Patient tolerated procedure well. Patient denies any discomfort at this time. Denies any further needs. Will continue to monitor. Fall percautions in place. Call light within reach.
[2020-07-13 17:04] VITALS: BP 165/55; PULSE 79; TEMP 97.9
--- NOTE | 2020-07-13 18:55 | NUR ---
Patient's external catheter fell off. New external catheter placed. Tip of penis excoriated. Zosyn currently runnig as ordered. Patient does not C/O any pain or discomfort at this time. Patient denies any further needs. Fall percautions in place. Call light within reach.
--- NOTE | 2020-07-13 19:01 | NUR ---
Received report from Angela. Patient awake, lying in bed. He denies pain on his legs. No other needs at this time.
[2020-07-13 20:31] VITALS: BP 172/61; PULSE 82; TEMP 97.9
[2020-07-14] VITALS (10 sets, daily range): BP systolic 140–179; BP diastolic 52–61; PULSE 71–86; TEMP 97.8–98.3
[2020-07-14 06:16] LABS: EOS # 0.3 (0.0-0.7); EOS % 6.8 % (0-4.0); GRAN # 4.2 (1.4-6.5); GRAN % 84.8 % (42.2-75.2); LYMPH # 0.3 (1.2-3.4); LYMPH % 6.8 % (20.0-51.0); MEAN CELL VOLUME 92 fl (80.0-100.0); MEAN CORPUSCULAR HGB CONC 31 g/dl (33.0-37.0); MEAN PLATELET VOLUME 11.5 fl (7.4-10.4); MONO # 0.1 (0.1-0.6); MONO % 1.2 % (1.7-9.3); PLATELET COUNT 64 K/mm3 (130-400); REDCELL DISTRIBUTION WIDTH-CV 16.4 % (11.5-14.5)
--- NOTE | 2020-07-14 06:18 | NUR ---
Patient states he wasn't able to sleep because he keep on hearing shows in the TV in the hallway. Informed him that there are no TV in the hallway, only in patient's room. I've checked patient from time to time last night and he was asleep. He woke up early at 4am but went back to sleep again.
[2020-07-14 06:26] LABS: CREATININE, serum 2.44 (0.66-1.25); POTASSIUM 3.9 mmol/L (3.4-5.0)
[2020-07-14 06:48] LABS: HEMOGLOBIN 6.7 g/dl (13.5-18.0); MEAN CORPUSCULAR HEMOGLOBIN 28 pg (27.0-31.0)
--- NOTE | 2020-07-14 07:54 | NUR ---
Lying in bed with eyes closed, opens eyes when name called out. Alert and oriented x4. Denies pain at this time. Patient says that his son was admitted to a hospital in [place] last night for complications from a brain surgery so he is stressed about this. Patient also says that he had lack of sleep due to the TV in the other room so he is tired. Discuss with the patient that we will change his dressings to his right lower leg and coccyx later this morning. Patient verbalizes understanding. Assist is ordering breakfast. Denies additional needs.
--- NOTE | 2020-07-14 08:46 | NUR ---
Aleksey wrap dressing removed to right foot. Remove foam pad to heel. Undetectable stage pressure ulcer noted to heel. Tender to touch. Apply new foam pad to heel and wrap in place with new aleksey wrap. Remove dressing to right calf. There are two stage 2 ulcers to back of calf. Clean with saline and pat dry. Apply telfa to each site and wrap with kerlix and reinforce with tape. Patient rolled to side. Remove Mepilex to coccyx area. Area is red, tender to touch, has a stage 2 ulcer noted. Site cleaned with saline, patted dry, and new Mepilex applied to area. Buttocks, scrotum, penis, and groin area red. Jeny care provided and apply Desenex to area. New external catheter applied. Patient tolerates well. Waiting on breakfast to arrive at this time. Denies additional needs.
[2020-07-14 08:57] LABS: IRON,SERUM 39 ug/dL (35-150)
[2020-07-14 09:06] LABS: TOTAL IRON BINDING CAPACITY 179 ug/dL (261-462)
--- NOTE | 2020-07-14 10:12 | NUR ---
Lying in bed with eyes closed. Opens eyes when name called out. Explain that I would like to check his catheter. No urine noted to be draining in bag. External portion of catheter has come off the tip of the penis. Patient is incontinent of urine. Cleaned at this time. Patient has a lot of pain when penis is touched due to redness and irritation. Attempt to apply external catheter to tip of penis. Patient is comfortable at this time. Denies additional needs.
--- NOTE | 2020-07-14 14:40 | NUR ---
Contact blood bank and they are still waiting on the blood to arrive and it may be around 1800 that they get it.
--- NOTE | 2020-07-14 14:47 | NUR ---
Residential Service Technician faxed clinical updates to Anita at [facility] who advised they are still good to accept at time of discharge. Rachele, IPR Director also continues to screen referral.
--- NOTE | 2020-07-14 16:53 | NUR ---
Lying in bed watching TV. Discuss with the patient that they should have his blood tonight and they can administer it after his antibiotic is complete. Assist patient in finding station to watch on TV. Denies need to void at this time. Patient will order dinner in a little bit. Denies additional needs.
[2020-07-14 17:27] LABS: FOLATE (FOLIC ACID) 3.4 ng/mL (7.0-31.4)
--- NOTE | 2020-07-14 21:50 | NUR ---
Patient assessed at 2135. Blood started at that time as well. This nurse stayed with patien the first 15 minutes of transfusion. Tolerating well. Reported level 8 pain to RLE. Given PRN Morphine as requested. Declined Melatonin at this time. Also refused Levemir. Port to right chest without redness, warmth, swelling, and pain. Denies SOB and dyspnes. LS CTA. Respirations even and unlabored. HRR. Telemetry i place. Capillary refill less than 3 seconds. Non-tenting skin turgor. BSAx4. Abdomen soft and non-tender. Calling for assistance with urinal. Urine clear and yellow. Redness continues to groin area. Desenex powder applied. Redness with 1+ edema RLE. Redness decreased to LLE, with no edema noted at this time. Dressings to ulcers on bottom, right calf, and right heel are CDI. Sore to right 2nd toe. Voices no questions, needs, or concerns at this time. Resting in bed with call light within reach.
[2020-07-15 00:18] VITALS: BP 142/61; PULSE 80; TEMP 98.1
--- NOTE | 2020-07-15 00:20 | NUR ---
Blood transfusion completed at this time. Tolerated well. Given Melatonin at this time as requested.
[2020-07-15 01:35] LABS: HEMATOCRIT 24.1 % (42.0-52.0); HEMOGLOBIN 7.4 g/dl (13.5-18.0)
--- NOTE | 2020-07-15 01:52 | NUR ---
Repeat HMG after 1 unit of blood was 7.4. Called and updated MARY Jordan. No new orders at this time.
[2020-07-15 04:29] VITALS: BP 148/51; PULSE 83; TEMP 98.2
--- NOTE | 2020-07-15 05:47 | NUR ---
Patient has been resting in bed with call light within reach. States melatonin has been helping him sleep tonight, but does seem to have some increased confusion when woken up, but easily redirected. Voices no questions, needs, or concerns at this time. Resting in bed with call light within reach.
--- NOTE | 2020-07-15 07:23 | NUR ---
Patient resting in bed at this time. Does not C/O any pain or discomfort at this time. Denies any further needs. Will continue to monitor. Fall percautions in place. Call light within reach.
[2020-07-15 07:33] LABS: CALCIUM 9.1 mg/dL (8.4-10.2); CREATININE, serum 2.31 (0.66-1.25); POTASSIUM 3.7 mmol/L (3.4-5.0)
[2020-07-15 07:39] VITALS: BP 166/61; PULSE 79; TEMP 98.4
[2020-07-15 07:52] LABS: MEAN CELL VOLUME 89 fl (80.0-100.0); MEAN CORPUSCULAR HGB CONC 32 g/dl (33.0-37.0); MEAN PLATELET VOLUME 11.5 fl (7.4-10.4); PLATELET COUNT 123 K/mm3 (130-400); RED BLOOD COUNT 2.68 M/mm3 (4.20-5.60); REDCELL DISTRIBUTION WIDTH-CV 16.1 % (11.5-14.5)
[2020-07-15 08:00] LABS: HEMATOCRIT 23.9 % (42.0-52.0); HEMOGLOBIN 7.6 g/dl (13.5-18.0); MEAN CORPUSCULAR HEMOGLOBIN 28 pg (27.0-31.0)
--- NOTE | 2020-07-15 08:30 | NUR ---
Patient resting in bed. Patient is alert, oriented x4. Shift assessment complete. Tele on, mustapha-cath upper right chest, clean dry and intact. duoderm to coccyx clean & untact. RL lower extremity drsg cbi. Pt denies c/o pain @ rest.
[2020-07-15 11:02] VITALS: BP 111/53; PULSE 82; TEMP 97.2
[2020-07-15] MEDS ORDERED: CIPRO 500MG TA500 MG PO (11:45)
[2020-07-15] MEDS ORDERED: FOLIC ACID 11 MG/TA1 PO (11:45)
[2020-07-15] MEDS ORDERED: CYANOCOBAL1000 MCG/M IM (11:46)
[2020-07-15] MEDS ORDERED: DESENEX TP (11:47)
[2020-07-15] MEDS ORDERED: LASIX 40MG TABL40 MG PO (11:49)
--- NOTE | 2020-07-15 13:09 | NUR ---
Patient resting in his chair at this time. Dressing change performed on two ulcers located on patient's RLL. 2x Tegederm, 1 ABD pad, 1 Gauze wrap, and 2 NS flushes used. Patient tolerated the procedure well. Patient does not C/O sidney pain or discomfort at this time. Patient denies any further needs. Will continue to monitor. FAll percautions in place. Call light within reach.
[2020-07-15 14:42] VITALS: BP 111/53; PULSE 82; TEMP 97.2
--- NOTE | 2020-07-15 15:28 | NUR ---
Marine Fireman faxed updates to Anita at [facility]. ELENITA then attended clinical rounds with the team and patient is ready for discharge today. ELENITA followed up with patient who advised his first preference is [facility] but he is agreeable to go to [facility] if [facility] cannot accept. ELENITA collaborated with Rachele, [facility] Director who advised she can accept patient today. ELENITA notified patient and patient's son, William that [facility] has accepted. Both are happy that discharge will be to [facility]. Patient's son, William asked ELENITA to contact Dr. Vera's office as patient has missed an appointment with them due to hospitalization. ELENITA contacted Dr. Vera's office and was advised that he has an appointment scheduled for 07/21. ELENITA advised that patient will likely still be here at that time. Dr. Vera's office would like to be notified when patient discharges from [facility] to reschedule appointment. ELENITA notified Rachele, [facility] Director about this. ELENITA also notified ELENITA Dias at the [facility] of discharge plan. Larissa advised the home based HI team does not feel home for patient is a great option but are aware patient and patient's son are both very motivated for patient to return home after rehab. ELENITA also contacted Anita at [facility] to notify her that patient's first preference accepted.
--- NOTE | 2020-07-15 16:18 | NUR ---
Patient accepted into [facility]. Patient report given tp ANTONIO Abreu. Patients VS are as follows: BP 160/89, Pulse 83, and SPO2 95%. Patient does not C/O any pain or discomfort at this time. JULIETTE Quiroz transferred patient.
[2020-07-15 16:29] VITALS: BP 160/89; PULSE 83
== END 2020-07-15 16:41 | DRG 291 ==
LOC: COL.ER 15:36 → MEDICAL 18:26
PROVIDERS: Physician Assistant; Student in an Organized Health Care Education/Training Program; ADMIT Student in an Organized Health Care Education/Training Program
DX: I13.0 Hypertensive heart and chronic kidney disease with heart failure and stage 1 through stage 4 chronic kidney disease, or unspecified chronic kidney disease (principal); J18.9 Pneumonia, unspecified organism; I50.33 Acute on chronic diastolic (congestive) heart failure; N17.9 Acute kidney failure, unspecified; C96.6 Unifocal Langerhans-cell histiocytosis; L03.115 Cellulitis of right lower limb; E11.22 Type 2 diabetes mellitus with diabetic chronic kidney disease; E11.51 Type 2 diabetes mellitus with diabetic peripheral angiopathy without gangrene; E11.42 Type 2 diabetes mellitus with diabetic polyneuropathy; Z66 Do not resuscitate; L89.159 Pressure ulcer of sacral region, unspecified stage; L98.419 Non-pressure chronic ulcer of buttock with unspecified severity; I48.91 Unspecified atrial fibrillation; G31.89 Other specified degenerative diseases of nervous system; B37.2 Candidiasis of skin and nail; I25.10 Atherosclerotic heart disease of native coronary artery without angina pectoris; E03.9 Hypothyroidism, unspecified; D63.1 Anemia in chronic kidney disease; N40.0 Benign prostatic hyperplasia without lower urinary tract symptoms; D69.6 Thrombocytopenia, unspecified; M75.102 Unspecified rotator cuff tear or rupture of left shoulder, not specified as traumatic; R25.1 Tremor, unspecified; G47.00 Insomnia, unspecified; R53.81 Other malaise; B96.5 Pseudomonas (aeruginosa) (mallei) (pseudomallei) as the cause of diseases classified elsewhere; Z95.0 Presence of cardiac pacemaker; Z87.891 Personal history of nicotine dependence; Z88.8 Allergy status to other drugs, medicaments and biological substances; Z91.81 History of falling
CPT/HCPCS: 99223-AI; 99232-AI; 99233-AI; J0360; J0456; J0696; J1815; J1940; J2270; J2543; J3420; J7050; P9040

== ENCOUNTER 2020-07-15 13:34 | Inpatient (IN) | payer MEDICARE, BC ==
[~2020-07-15] VITALS: Ht 175.3 cm; Wt 98.8 kg
[~2020-07-15 13:34] MED LIST changes: +ANUSOL HC CREAM30 GM TP; +BACTROBAN 22GM22 GM NAS; +CIPRO 500MG TA500 MG PO; +CYANOCOBAL1000 MCG/M IM; +DESENEX TP; +FOLIC ACID 11 MG/TA1 PO; +LIDEX CR 15GM TP; +MIRALAX PA17 GM/Dose PO; +QUALITY CHOI500 U/GM TOP; +ZINC OXIDE56.7 GM TP
[2020-07-15 17:00] VITALS: BP 160/80; PULSE 78; TEMP 97.6
--- NOTE | 2020-07-15 20:00 | NUR ---
PATIENT RESTING COMFORTABLE IN RECLINER, 2 PERSON ASSIST TO BED,BANMDAGES INTACK AND NOT DISTURBED CLEAR SDRY NO DRAINAGE FOUND
--- NOTE | 2020-07-15 20:14 | NUR ---
Patient arrived to [facility] via wheelchair. This nurse received report from Ludy at [facility]. Patient resting in bed, call light in reach and bed alarm set. Patient denies any questions at this time. Reported off to night nurse.
[2020-07-16 02:02] VITALS: BP 167/55; PULSE 71; TEMP 98.1
[2020-07-16 05:44] VITALS: BP 160/54; PULSE 74; TEMP 98.1
--- NOTE | 2020-07-16 08:35 | NUR ---
Patient resting in bed, call light in reach and bed alarm set. Patient is currently working with PT at this time.
--- NOTE | 2020-07-16 10:51 | NUR ---
Patient has a large area on his bottom that is very red/purple, excoriated and bleeding in areas. Call placed to Na to evaluate area to get further instruction on how to treat.
--- NOTE | 2020-07-16 11:58 | NUR ---
ELENITA met with the patient to complete intake, as the patient is new to [facility]. The patient lives alone in [place]. His son, William (ph#[phone]), lives in [place], [place]. The patient states that William comes down a lot to visit and stay with him. He reports that he requested some assistance for bathing prior to d/c and has a walker, lift chair, and grabbars in the bathroom. The patient has home health services from [facility]. ELENITA confirmed services from Mona at [facility]. The patient states that he had a visit from [address] [place] [address] before hospitalization to see about getting services through them. The patient's primary care provider is LVAON Granados at the [facility] and he receives his medications from the [facility] The patient is enrolled in the home based primary care through the [facility]. He states that their RN and the doctor comes out around every 8-9 weeks. The patient has a DPOA-HC is in EMR. It designates his , Genny. The patient states that Genny now resides at [facility] and is incapacitated and not able to make decisions. The alternate listed is his step-daughter, Galian Koroma. The patient states that he would not want Galina making his decisions and was interested in completing a new DPOA-HC while here. ELENITA provided the form. The patient designated him son, William, and his sister, Sherita Villareal, as the alternate. Sherita lives in [place]. ELENITA and Marialuisa RICKETTS, witnessed the patient's signature. ELENITA provided him with the original and some copies. ELENITA placed a copy in the patient's chart. ELENITA to continue to follow.
--- NOTE | 2020-07-16 16:16 | NUR ---
Patient has reported pain to the tip of his penis. Slight redness observed to area. See new order for topical lidocaine to help with pain control per Dr. Barry.
--- NOTE | 2020-07-16 16:43 | NUR ---
ELENITA met with the patient to present and review the [facility] Team Conference Note. ELENITA discussed how the team plans to re-evaluate him next Tuesday and would like to schedule a patient/family next Tuesday or Tuesday. The patient was agreeable to the plan. ELENITA attempted to contact the patient's son, Kg, to update and to set up the meeting. ELENITA left him a voicemail.
[2020-07-16 17:15] VITALS: BP 102/75; PULSE 88; TEMP 97.5
--- NOTE | 2020-07-16 21:00 | NUR ---
PT RELATED HAS NOT HAD A BM IN A WEEK. TAKING MIRALAX. REFUSED STOOL SOFTNERS OR SUPPOSITORY. PT AGREED TO 07/17 SUPP OR MORE AGRESSIVE LAXITIVE IF NOT HAD A BM.
--- NOTE | 2020-07-16 21:00 | NUR ---
PT RESTING IN BED. VERY UPSET REGARDING SON RECENT SURGERY- CORRINE Y WORRIED. RELATES HAS A DIFFICULT TIME FOCUSING ON HIMSELF AND GETTING WELL. SEE SHIFT ASSESSMENT FOR NUMEROUS SKIN ISSUES. PT REFUSED HS SAMANTHA BAHENA. ACCUCHECK 154. PT REFUSED DEACCESSING PORTACATH FOR LAB DRAWS. WILL CLARIFY THIS IN AM. ERIKA CRESPO RN REPORTED MESSAGE TO DE-ACCESS IT BY CHERY COPE. CALL LIGHT IN REACH. BED ALARM SET.
[2020-07-17 03:43] VITALS: BP 109/71; PULSE 72; TEMP 97.1
[2020-07-17 06:20] LABS: MEAN CELL VOLUME 91 fl (80.0-100.0); MEAN CORPUSCULAR HGB CONC 31 g/dl (33.0-37.0); MEAN PLATELET VOLUME 10.5 fl (7.4-10.4); REDCELL DISTRIBUTION WIDTH-CV 16.6 % (11.5-14.5)
[2020-07-17 06:27] LABS: HEMATOCRIT 23.6 % (42.0-52.0); HEMOGLOBIN 7.2 g/dl (13.5-18.0); MEAN CORPUSCULAR HEMOGLOBIN 28 pg (27.0-31.0); PLATELET COUNT 300 K/mm3 (130-400)
[2020-07-17 06:30] LABS: CALCIUM 9.4 mg/dL (8.4-10.2); CREATININE, serum 2.8 (0.66-1.25); POTASSIUM 3.5 mmol/L (3.4-5.0)
[2020-07-17 06:53] LABS: BAND 1 % (0-10); EOSINOPHIL 9 % (0-4); LYMPHOCYTE 5 % (20.0-51.0); NEUTROPHILS 85 % (42.0-75.2); PLATELET ESTIMATE NORMAL (NORMAL)
[2020-07-17 06:54] LABS: ANISOCYTOSIS 1+
--- NOTE | 2020-07-17 11:08 | NUR ---
The patient's son, William, returned ELENITA's phone call. ELENITA provided him with an update and discussed setting up a patient/family meeting. A patient/family conference call was set up for next Tuesday at 1300. ELENITA notified [facility] Director.
--- NOTE | 2020-07-17 12:12 | NUR ---
PT C/O PAIN IN LEGS TODAY, WAS ASKING ABOUT GABAPENTIN, WHICH HE IS NOT RECEIVING BUT WAS AT HOME. PLAN TO TALK TO PA OR ABOUT THIS WELL LEG PAIN, LABS, OCCULT BLOOD, AND IF INFUSA PORT CAN STAY ACCESSED.
[2020-07-17 15:47] VITALS: BP 106/61; PULSE 79; TEMP 97.4
--- NOTE | 2020-07-17 19:54 | NUR ---
DISCUSSED WITH MID LEVEL JORDAN ABOUT PTS' RESTLESS LEG SYNDROME AND LEG PAIN, LABS, AND INFUSA PORT. SEE ORDERS FOR CHANGES, NO ORDERS GIVEN TO DEACCESS INFUSAPORT. LEFT ACCESSED, PT IS A HARD STICK AND LAB VALUES ARE LOW.
--- NOTE | 2020-07-17 20:00 | NUR ---
PT VERY HAPPY THIS EVENING. RECEIVED GOOD NEW ABOUT SON. RICK MCCLOUD. WILL WAIT FOR BLOOD SUGAR 2HR PP.
[2020-07-18 05:35] VITALS: BP 126/41; PULSE 64; TEMP 98.1
[2020-07-18 06:26] LABS: MEAN CELL VOLUME 92 fl (80.0-100.0); MEAN CORPUSCULAR HGB CONC 31 g/dl (33.0-37.0); MEAN PLATELET VOLUME 10.4 fl (7.4-10.4); RED BLOOD COUNT 2.51 M/mm3 (4.20-5.60); REDCELL DISTRIBUTION WIDTH-CV 16.8 % (11.5-14.5)
[2020-07-18 06:33] LABS: HEMATOCRIT 23.1 % (42.0-52.0); HEMOGLOBIN 7.1 g/dl (13.5-18.0); MEAN CORPUSCULAR HEMOGLOBIN 28 pg (27.0-31.0); PLATELET COUNT 407 K/mm3 (130-400)
[2020-07-18 06:45] LABS: CALCIUM 9.6 mg/dL (8.4-10.2); CREATININE, serum 3.05 (0.66-1.25); POTASSIUM 3.5 mmol/L (3.4-5.0)
[2020-07-18 07:47] LABS: ANISOCYTOSIS 1+; EOSINOPHIL 31 % (0-4); LYMPHOCYTE 8 % (20.0-51.0); METAMYELOCYTE 1 % (0-0); NEUTROPHILS 57 % (42.0-75.2); PLATELET ESTIMATE NORMAL (NORMAL)
--- NOTE | 2020-07-18 11:11 | NUR ---
Patient had an ultrasound completed on his right leg this morning. Awaiting results. Patient has an excoriated bottom and areas that are slightly bleeding - placed mepilex over area. Patient uses a cushion on his recliner and air mattress on his bed. Applied heel protectors on patients bilateral heels, applied xeroform to right leg ulcers and secured with mepilex bandages. Patient was started on IV fluids this morning. Patient currently resting in bed, call light in reach and bed alarm set. Will continue to monitor.
--- NOTE | 2020-07-18 13:49 | NUR ---
Admission QIM scores were reviewed by the team. Code of 4 chosen for oral hygiene was determined by team discussion to be the most usual performance before interventions for this patient during the assessment period. Code of 2 chosen for toileting transfers was determined by team discussion to be the most usual performance for this patient during the assessment period. Code of 3 chosen for walk 10 feet was determined by team discussion to be the most usual performance for this patient during the assessment period.--Rachele Mendez, PD
--- NOTE | 2020-07-18 15:04 | NUR ---
Patient resting in recliner, call light in reach and chair alarm set. This nurse received a call from the charge nurse Shena and she reported that patient had called the hospital railway signal operator asking for someone to help him call the kitchen to place an order for his meals. This nurse arrived in patient room and found him with his call light in reach, but was asking for assistance with finding his room phone. This nurse located his room phone and then patient was then able to call his meals in for tomorrow. Patient reported that he was not wanting to bother anyone. This nurse educated patient on using his call light when he needed anything. He voiced understanding. Will continue to monitor.
--- NOTE | 2020-07-18 15:38 | NUR ---
ELENITA met with the patient to follow up before the weekend. The patient states that some things are good and some are bad. He states that he has problems with his kidneys now. ELENITA provided support. ELENITA informed him of the patient/family conference call on Tuesday with his son. The patient was aware of this. SW to continue to follow.
[2020-07-18 15:42] VITALS: BP 142/62; PULSE 71; TEMP 97.3
--- NOTE | 2020-07-18 20:11 | NUR ---
Patient was seen by Dr. Power this evening. No new orders at this time. Patient was started on IV fluids this morning, but also continues on fluid restriction of 1500 ml. Patient given prn pain meds for right leg pain that were effective. Dobbler results came back as negative for DVT. Patient Hgb was 7.1 today and was seen by Dr. Barry. See new orders. Patient attended all therapies today. Tolerated diet well and currently resting in bed, call light in reach and bed alarm set. Reported off to night nurse.
--- NOTE | 2020-07-18 22:21 | NUR ---
CONFIRMED WITH ONCALL HOSP PROVIDER OKAY TO GIVE ELIQUIS AT HS WITH REGARDING TO RECENT H/H LAB RESULTS FOR TODAY, OKAY TO CONTINUE WITH ELIQUIS TO HS CONFIRMED BY RENNY CARVAJAL
--- NOTE | 2020-07-19 01:00 | NUR ---
RECEIVED CALL FROM SON, JAVON, THAT PATIENT'S RECENTLY , WANTED TO SPEAK WITH PATIENT IF PATIENT WAS STILL AWAKE. PATIENT OBSERVED SLEEPING AND SON INFORMED OF PATIENT SLEEPING, WITH SON REQUESTING TO SPEAK WITH PATIENT ALEX UPON PATIENT WAKING AND NOT TO ANSWER PHONE MESSAGES LEFT ON PATIENT'S CELL PHONE. THIS NURSE ASSURED SON THAT PATIENT WILL BE INFORMED OF HIS REQUEST TO CALL SON, JAVON, SOON HE AWAKENS.
[2020-07-19 05:25] VITALS: BP 148/61; PULSE 84; TEMP 97.3
--- NOTE | 2020-07-19 12:42 | NUR ---
First visit from the maintenance plumber. Prototype Engineer Manager prayed with patient. No needs right now.
--- NOTE | 2020-07-19 12:43 | NUR ---
REPORTED BY NIGHT NURSE THAT PT'S HAD LAST NIGHT, PT VERY EMOTIONAL THIS AM. OKAY'D BY UZAIR TO HAVE A VISITOR FROM HIS CONFUCIANIST WELL SON WHEN HE ARRIVES. VISITORS NAME IS LEÓN RYAN.
[2020-07-19 14:58] LABS: COLLECTION METHOD CLEAN CATCH
[2020-07-19 15:05] LABS: MUCOUS Present /lpf; PH 5 (5-8); SQUAMOUS EPITHELIAL None Seen /hpf; URINE APPEARANCE Hazy; URINE BACTERIA Rare /hpf; URINE BILIRUBIN Negative (NEGATIVE); URINE BLOOD Negative (NEGATIVE); URINE CALCIUM OXALATE CRYSTAL Present /hpf; URINE COLOR Yellow; URINE GLUCOSE Negative (NEGATIVE); URINE KETONE Negative (NEGATIVE); URINE LEUKOCYTE ESTERASE Negative (NEGATIVE); URINE NITRATE Negative (NEGATIVE); URINE PROTEIN(semi-quant) 1+ (NEGATIVE); URINE UROBILINOGEN Negative (NEGATIVE); URINE WBC 0-2 /hpf
[2020-07-19 15:06] LABS: IRON,SERUM 15 ug/dL (35-150)
[2020-07-19 15:16] LABS: TOTAL IRON BINDING CAPACITY 198 ug/dL (261-462)
[2020-07-19 18:18] VITALS: BP 150/43; PULSE 63; TEMP 98
--- NOTE | 2020-07-19 18:25 | NUR ---
PT RECEIEVED PRN NORCO HALF TAB ONCE TODAY, DENIED WANTING K-PAD. FLOATING HEELS AND ENCOURAGING TURNING ONTO SIDES WHILE IN BED. PT HAS BEEN TALKING WITH STAFF AND FAMILY/FRIENDS ABOUT LOSS OF MUCH OF THE DAY. SAD BUT MANAGING HEALTHILY. PT FOUND INCONTINENT OF LOOSE BM AND DID NOT KNOW HE HAD GONE. UNSURE HOW LONG PT SAT IN STOOL PRIOR TO CLEAN UP. PT'S S2 HAS INCREASED IN SIZE IN THE SACRAL CLEFT, NEW OPEN AREAS TO SCROTUM AND GENERAL REDNESS, IRRITAION, EXCORIATION APPEARS WORSENED. ZINC APPLIED TO S2 AND OPEN AREAS ON SCROTUM AND BARRIER CREAM TO ALL OTHER AREAS. NO DRSG B/C ADHESIVE PARTS WOULD INTERFER WITH HEALING.
--- NOTE | 2020-07-19 19:15 | NUR ---
RECEIVED CHANGE OF SHIFT REPORT FROM DAY SHIFT NURSE. BED ALARM ON WHILE IN BED. DENIES ANY NEEDS AT THIS TIME. OBSERVED PATIENT ON CELL PHONE AT THIS TIME.
--- NOTE | 2020-07-19 20:00 | NUR ---
PATIENT DENIES CHEST PAIN/SOA AT THIS TIME. DENIES ANY NEEDS AT THIS TIMES. BED ALARM ON WHILE IN BED.
[2020-07-20 05:15] VITALS: BP 142/59; PULSE 69; TEMP 97.9
--- NOTE | 2020-07-20 06:58 | NUR ---
CHANGE OF SHIFT REPORT GIVEN TO DAY SHIFT NURSE, JOHN ALVAREZ.
--- NOTE | 2020-07-20 07:03 | NUR ---
PT SLEEPING IN BED AT [facility]. BED ALARM IN PLACE.
[2020-07-20 17:00] VITALS: BP 151/48; PULSE 60; TEMP 97.9
--- NOTE | 2020-07-20 18:24 | NUR ---
PT RECEIEVED PRN NORCO THREE TIMES TODAY. AFTER WHOLE DOSE, PT FELT LIKE IT DID HELP PAIN, BUT THAT THE HALF DOSE DOES NOT. PT WAS CONTINENT TODAY AND M TAMEKA REBOLLAR.
--- NOTE | 2020-07-20 19:24 | NUR ---
RECEIVED CHANGE OF SHIFT REPORT FROM DAY SHIFT NURSE.
--- NOTE | 2020-07-20 20:30 | NUR ---
PATIENT WANTED TO WAIT TO TAKE HS MEDS AT THIS TIME, PATIENT STATING HE WANTED TO REST SOME AFTER HAVING VISITORS.
--- NOTE | 2020-07-20 22:15 | NUR ---
PATIENT RESTING WITH EYES CLOSED, BREATHING EVEN AND NONLABORED. SPOKE WITH NURSE FROM [facility], ON BEHALF OF KAILEE, SON OF PATIENT, WAS WONDERING ABOUT PATIENT'S STATUS AFTER NOT BEING ABLE TO FACE TIME WITH PATIENT. REASSURED NURSE FOR KAILEE THAT PATIENT IS RESTING AND HAD A BUSY DAY AND VISITORS THIS EVENING (X2 STEP DAUGHTERS,SEEING PATIENT REGARDING ARRANGEMENTS). REASSURED THAT PATIENT WILL BE INFORMED OF HIS SON'S CALL, INQUIRING ABOUT HIS CURRENT STATUS.
[2020-07-21 05:28] VITALS: BP 167/47; PULSE 63; TEMP 97.9
[2020-07-21 06:08] LABS: BASO % 0.5 % (0.0-2.0); EOS # 2.4 (0.0-0.7); EOS % 59.7 % (0-4.0); GRAN # 0.2 (1.4-6.5); GRAN % 5.4 % (42.2-75.2); LYMPH # 0.5 (1.2-3.4); LYMPH % 13.3 % (20.0-51.0); MEAN CELL VOLUME 95 fl (80.0-100.0); MEAN CORPUSCULAR HGB CONC 30 g/dl (33.0-37.0); MEAN PLATELET VOLUME 9.8 fl (7.4-10.4); MONO # 0.9 (0.1-0.6); MONO % 21.1 % (1.7-9.3); RED BLOOD COUNT 2.55 M/mm3 (4.20-5.60); REDCELL DISTRIBUTION WIDTH-CV 18.1 % (11.5-14.5)
[2020-07-21 06:13] LABS: CALCIUM 8.9 mg/dL (8.4-10.2); CREATININE, serum 2.69 (0.66-1.25); MAGNESIUM 1.9 mg/dL (1.6-2.3); POTASSIUM 3.6 mmol/L (3.4-5.0)
[2020-07-21 06:24] LABS: HEMATOCRIT 24.3 % (42.0-52.0); HEMOGLOBIN 7.3 g/dl (13.5-18.0); MEAN CORPUSCULAR HEMOGLOBIN 29 pg (27.0-31.0); PLATELET COUNT 512 K/mm3 (130-400)
--- NOTE | 2020-07-21 07:48 | NUR ---
CHANGE OF SHIFT REPORT GIVEN TO DAY SHIFT NURSEJESSICA RN AND A CAPSTONE STUDENT NURSE.
--- NOTE | 2020-07-21 11:21 | NUR ---
PATIENT DISCONNECTED FROM [facility] FOR SHOWER WITH THERAPY. WILL RECONNECT AFTER SHOWER IS COMPLETE.
--- NOTE | 2020-07-21 14:22 | NUR ---
THERAPY STAFF CALLED THIS NURSE INTO THE ROOM. THE PATIENT WAS DOING STAIRS WITH THERAPY AND DEVELOPED LEFT-SIDED CHEST PAIN THAT THE PATIENT DESCRIBES SHARP AND TINGLY. PATIENT DENIES RADIATING PAIN, CHEST PRESSURE OR TIGHTNESS. VSS. CALLED AND NOTFIIED. TORB FOR EKG FROM TO THIS NURSE. AIDA WITH [facility] CALLED AND NOTIFIED OF EKG ORDER.
--- NOTE | 2020-07-21 14:25 | NUR ---
AIDA WITH RT IN PATIENT ROOM TO OBTAIN EKG.
[2020-07-21 15:33] VITALS: BP 174/54; PULSE 61; TEMP 97.5
--- NOTE | 2020-07-21 19:20 | NUR ---
RECEIVED CHANGE OF SHIFT REPORT FROM DAY SHIFT NURSE.
[2020-07-21 23:01] VITALS: BP 165/60
[2020-07-22 05:07] VITALS: BP 138/68; PULSE 68; TEMP 97.8
--- NOTE | 2020-07-22 07:44 | NUR ---
CHANGE OF SHIFT REPORT GIVEN TO DAY SHIFT NURSE, ERIKA ALVAREZ.
--- NOTE | 2020-07-22 10:01 | NUR ---
Patient resting in bed, call light in reach and bed alarm set. Patient denies the need for pain meds at this time. Will continue to monitor.
--- NOTE | 2020-07-22 13:29 | NUR ---
SW attended the patient/family conference call. The patient's son, Kg, was on speaker phone. Also present was [facility] Director, PT, and OT. [facility] Director started by explaining the purpose of the meeting. PT/OT then discussed the patient's progress so far and how d/c is being pushed back from Tuesday. A discharge date will be discussed tomorrow during team meeting. The patient and Kg verbalized understanding and were agreeable to the plan. The team answered all questions. SW to continue to follow.
--- NOTE | 2020-07-22 14:19 | NUR ---
Patient refused his breakfast and lunch this shift. Call placed to dietary so that patient could get some Nepali Ice since he was not eating anything else. Patient was able to get down one cup of this. Will continue to monitor.
[2020-07-22 16:03] VITALS: BP 139/49; PULSE 72; TEMP 98.1
--- NOTE | 2020-07-22 18:21 | NUR ---
Patient started therapies later this morning. He was very tired this shift. Patient refused all his meals this shift only eating Chinese ice. Patient still showing signs of depression following the notice that his had on Tuesday. Patient did attend all his therapies this shift. Patient currently resting in bed, call light in reach and bed alarm set. Will continue to monitor.
[2020-07-23 05:16] VITALS: BP 149/48; PULSE 66; TEMP 98.7
[2020-07-23 06:07] LABS: MEAN CELL VOLUME 93 fl (80.0-100.0); MEAN CORPUSCULAR HGB CONC 31 g/dl (33.0-37.0); MEAN PLATELET VOLUME 10.1 fl (7.4-10.4); PLATELET COUNT 493 K/mm3 (130-400); RED BLOOD COUNT 2.72 M/mm3 (4.20-5.60); REDCELL DISTRIBUTION WIDTH-CV 18.3 % (11.5-14.5)
[2020-07-23 06:11] LABS: HEMATOCRIT 25.2 % (42.0-52.0); HEMOGLOBIN 7.7 g/dl (13.5-18.0); MEAN CORPUSCULAR HEMOGLOBIN 28 pg (27.0-31.0)
[2020-07-23 06:14] LABS: ALBUMIN 2.3 gm/dL (3.5-5.0); CALCIUM 8.9 mg/dL (8.4-10.2); CREATININE, serum 2.52 (0.66-1.25); MAGNESIUM 1.9 mg/dL (1.6-2.3); PHOSPHOROUS 3.2 mg/dL (2.5-4.5); POTASSIUM 3.6 mmol/L (3.4-5.0)
[2020-07-23 07:06] LABS: BAND 2 % (0-10); EOSINOPHIL 21 % (0-4); LYMPHOCYTE 15 % (20.0-51.0); NEUTROPHILS 23 % (42.0-75.2)
[2020-07-23 07:07] LABS: ANISOCYTOSIS 1+; HYPOCHROMIA 1+; PLATELET ESTIMATE INCREASED (NORMAL)
--- NOTE | 2020-07-23 09:02 | NUR ---
Patient had an episode of vomiting this morning. He had eaten almost all of his breakfast when he began to choke and then he vomited at least 100 ml of food back up over his clothes and bedding. Patient was cleaned up and had him change into a gown. Staff will wash his clothing as he doesn't have any clean clothes to wear at this time. He is currently working with PT at this time. Will continue to monitor.
--- NOTE | 2020-07-23 11:14 | NUR ---
Patient resting in bed, call light in reach and bed alarm set. Patient has not any more episodes of vomiting this morning. He has attended all therapies this morning. Currently he is working with OT.
[2020-07-23 16:38] VITALS: BP 161/57; PULSE 69; TEMP 97.7
--- NOTE | 2020-07-23 16:39 | NUR ---
ELENITA met with the patient to present and review the [facility] Team Conference Note. ELENITA discussed how the team has set a d/c date for next Tuesday, 07/30, with home health PT/OT. The patient was agreeable to the plan and would like to resume services from [facility]. ELENITA then contacted the patient's son, Kg, to update on the above. He is agreeable to the plan, but requests d/c on , 07/31. He states that he will be in town that day and can assist the patient with transitioning back home. ELENITA to notify [facility] Director. ELENITA also discussed the option of assisted living in the future, if the patient needs more help. Kg reports that he does not want his father to have to go to a assisted and pass away there. He states that he is getting [employer] to also come into the patient's home to assist him so more. His goal is to keep the patient in the home. ELENITA answered all questions. ELENITA to continue to follow.
--- NOTE | 2020-07-23 18:37 | NUR ---
Patient resting in bed at this time. Asked him if he called in his menu for tomorrow, but he is refusing to order any food due to his emesis. Patient was started on protonix, but refused to get a scope done to check for any further issues. Will continue to monitor.
--- NOTE | 2020-07-23 19:36 | NUR ---
Patient's IV fluids were stopped today as well as his ACHS accuchecks. Patient refused supper, but did agree to an ensure chocolate shake. Reported off to night nurse.
--- NOTE | 2020-07-23 19:40 | NUR ---
RECEIVED CHANGE OF SHIFT REPORT FROM DAY SHIFT NURSE.
--- NOTE | 2020-07-23 20:00 | NUR ---
DENIES CHEST PAIN/SOA/NAUSEA AT THIS TIME. REPORTS DOES NOT WANT ANY MEDS AT THIS TIME DUE TO WANTING TO FINISH EVENING PRAYERS/ROSARY RECITATION FIRST. OBSERVED PATIENT RECEIVING NUMEROUS CALLS/TEXT THIS EVENING. BED ALARM ON. PATIENT REPORTS IS NOT ABLE TO GET UP TO VOID/HAVE BM AT THIS TIME DUE TO FEELING FATIGUED.
--- NOTE | 2020-07-23 22:00 | NUR ---
PATIENT REPORTS HE DOES NOT WANT OPTION TO HAVE CATHETER INSERTED TO DRAIN BLADDER (INDWELLING OR INTERMITTANT) AT THIS TIME.
[2020-07-24 05:00] VITALS: BP 159/56; PULSE 80; TEMP 97.8
--- NOTE | 2020-07-24 07:13 | NUR ---
CHANGE OF SHIFT REPORT GIVEN TO DAY SHIFT NURSEJM RN.
--- NOTE | 2020-07-24 15:41 | NUR ---
[facility] Director reports that they can d/c the patient next , 07/31. SW notified the patient's son, Kg. Kg was agreeable to the d/c date. Kg requests and update from the patient's RN after 1729. ELENITA informed the patient's RN. ELENITA attempted to contact and update Mona at [facility] of d/c date. ELENITA left her a voicemail.
[2020-07-24 18:09] VITALS: BP 127/51; PULSE 77; TEMP 98.3
--- NOTE | 2020-07-24 18:23 | NUR ---
Patient resting in bedside recliner at this time. Patient has continued to deny pain today. Currently denies nausea or needs, call light within reach.
--- NOTE | 2020-07-24 19:06 | NUR ---
RECEIVED CHANGE OF SHIFT REPORT FROM DAY SHIFT NURSE.
--- NOTE | 2020-07-24 20:00 | NUR ---
PATIENT STATES HE DOES NOT WANT TO STAND TO VOID, REPORTS SPUTUM (OBSERVED CLEAR AND FROTHY AND THIN IN CONSISTENCY) OF SMALL AMOUNTS. REPORTS "STOMACH FEELS BETTER" SINCE PASSING STOOL EARLIER TODAY. DENIES CHEST PAIN/SOA/NAUSEA AT THIS TIME. REPORTS NO APPETITE, DENIES ANY NEEDS OR DISCOMFORT. BED ALARM ON WHEN IN BED.
[2020-07-25 05:18] VITALS: BP 151/60; PULSE 86; TEMP 98.2
--- NOTE | 2020-07-25 06:47 | NUR ---
CHANGE OF SHIFT REPORT GIVEN TO DAY SHIFT NURSEJOHN RN
[2020-07-25 10:13] LABS: MEAN CELL VOLUME 90 fl (80.0-100.0); MEAN CORPUSCULAR HGB CONC 31 g/dl (33.0-37.0); PLATELET COUNT 409 K/mm3 (130-400); RED BLOOD COUNT 3.12 M/mm3 (4.20-5.60); REDCELL DISTRIBUTION WIDTH-CV 18.9 % (11.5-14.5)
[2020-07-25 10:23] LABS: HEMOGLOBIN 8.7 g/dl (13.5-18.0); MEAN CORPUSCULAR HEMOGLOBIN 28 pg (27.0-31.0)
[2020-07-25 10:49] LABS: ANISOCYTOSIS 2+; BAND 7 % (0-10); EOSINOPHIL 2 % (0-4); LYMPHOCYTE 19 % (20.0-51.0); NEUTROPHILS 33 % (42.0-75.2); OVALOCYTES 1+; PLATELET ESTIMATE NORMAL (NORMAL); SCHISTOCYTES 1+; TARGET CELLS 1+
[2020-07-25 18:11] VITALS: BP 136/44; PULSE 71; TEMP 98.1
--- NOTE | 2020-07-25 19:30 | NUR ---
PT RECEIVED PRN NORCO HALF A TAB THIS EVENING FOR PAIN IN LEFT FOOT AND SODIUM FERROUS GLUCONATE HOUR INFUSION VIA RT CHEST PORACATH. PT HAS REFUSED MOST OF FOOD TODAY, APPEARED MORE PALE, SHAKEY, AND LETHARGIC THIS AM. 'S ARRANGEMENTS MADE WITH COMPANY ACCOUNTANT TODAY AND DATE SET. PT MORE DEPRESSED TODAY.
--- NOTE | 2020-07-25 21:00 | NUR ---
PT RESTING IN BED. A&O. CONVERSES ABOUT LOSING RECENTLY. SEE MAR FOR ADD'L PAIN MED GIVEN FOR UNRELIEVED GENERALIZED AND BACK PAIN. PT VERY STIFF. INCREASED PAIN WITH TURNS AND REPOSTITIONING. PUBIC EDEMA NOTED- 3RD SPACING SHABNAM WRAPS TO BILAT LE FOR EDEMA. FEET UP ON 3 PILLOWS. CALL LIGHT IN REACH. BED ALARM SET.
[2020-07-26 05:08] VITALS: BP 114/56; PULSE 65; TEMP 97.7
--- NOTE | 2020-07-26 13:10 | NUR ---
Patient went to group therapy this morning. He attempted to eat his salad this morning and then vomited it up. Patient currently resting in bed, with call light by his side and alarm set. Will continue to monitor.
--- NOTE | 2020-07-26 13:47 | NUR ---
Patient received a delivery of ice cream from his friend Vinita. She also called and visited with him. Patient has been sleeping alot since his therapies this morning and is currently resting in bed, call light in reach and bed alarm set. Will continue to monitor.
[2020-07-26 15:57] VITALS: BP 142/48; PULSE 80; TEMP 98.5
--- NOTE | 2020-07-26 17:42 | NUR ---
Patient refused his lunch and supper. Encouraged Enlive or Ensure, but refused both. Patient did eat some ice cream for lunch that his friend Vinita dropped off. He also ate some lemon welsh ice for supper. Will continue to try to encourage patient to eat.
--- NOTE | 2020-07-27 00:42 | NUR ---
PT REFUSING TURNS ADMADENTLY. HE IS NOW ON HIS RT SIDE.
[2020-07-27 05:22] VITALS: BP 125/63; BP 168/59; PULSE 75; PULSE 86; TEMP 98.1
[2020-07-27] MEDS ORDERED: CIPRO 500MG TA500 MG PO (10:30)
[2020-07-27] MEDS ORDERED: TYLENOL 325MG325 MG PO (10:30)
[2020-07-27] MEDS ORDERED: LIDO2%GEL TOP (10:31)
[2020-07-27] MEDS ORDERED: PROTONIX 40MG T40 MG PO (10:31)
[2020-07-27 15:03] VITALS: BP 115/50; PULSE 74; TEMP 97.7
--- NOTE | 2020-07-27 15:42 | NUR ---
This nurse spent time with patient giving him a bed bath. Patient was bleeding in his groin area due to itching. Applied zinc all over the scrotom area which helped the itching subside. Patient also reported that his cancer is the main reason for his all over body itching. He reports that his back gets really bad at times. Lotion applied to back, stomach and bilateral legs. Patient's bottom has healed well. No open or scabbed areas anymore. His Right Posterior lower leg Stage II ulcers x 2 are smaller in size and currently 1.5 cm x 0.5 cm oblong shape, and lightly scabbed over. Applied xeroform to areas and secured with mepilex. Right heel is still a Deep Tissue Injury that is unstageable at this time. Applied booties to bilateral feet for protection. The top of both feet are scaling, slightly red, but healing well. Patient refused to walk today and slept most of the day either in his recliner or in his bed. Patient did drink one ensure for each meal, but refused hospital food. Patient currently resting in bed, call light in reach and bed alarm set. Will continue to monitor.
--- NOTE | 2020-07-27 20:00 | NUR ---
TRANSFERRED 2:1 FROM RECLINER TO BED. PT SL DYSPNEIC WITH ACTIVITY. ASSISTED WITH LIFTING LEGS INTO BED. SCROTUM HAD A VERY SMALL AMT OF BLEEDING. APPLIED DESENEX TO GROIN AND SCROTUM. SEE MAR FOR NORCO GIVEN FOR BILAT LEG PAIN. PT REFUSED PILLOW HEEL PROTECTORS. FLOATED HEELS ON 2 PILLOWS. CALL LIGHT IN REACH. BED ALALRM SET.
[2020-07-28 04:43] VITALS: BP 119/53; PULSE 81; TEMP 98.1
[2020-07-28 06:48] LABS: MEAN CELL VOLUME 91 fl (80.0-100.0); MEAN CORPUSCULAR HGB CONC 31 g/dl (33.0-37.0); MEAN PLATELET VOLUME 10.1 fl (7.4-10.4); REDCELL DISTRIBUTION WIDTH-CV 19.1 % (11.5-14.5)
[2020-07-28 06:49] LABS: HEMATOCRIT 25.5 % (42.0-52.0); HEMOGLOBIN 7.9 g/dl (13.5-18.0); MEAN CORPUSCULAR HEMOGLOBIN 28 pg (27.0-31.0); PLATELET COUNT 305 K/mm3 (130-400)
--- NOTE | 2020-07-28 06:50 | NUR ---
PT BLOOD DRAWN AT BEDSIDE SHIFT REPORT AND VOIDED 300+ IN URINAL AT THIS TIME.
[2020-07-28 07:40] LABS: BAND 17 % (0-10); LYMPHOCYTE 11 % (20.0-51.0); METAMYELOCYTE 6 % (0-0); NEUTROPHILS 53 % (42.0-75.2); PLATELET ESTIMATE NORMAL (NORMAL)
[2020-07-28 08:02] LABS: ALBUMIN 2.2 gm/dL (3.5-5.0); CALCIUM 8.9 mg/dL (8.4-10.2); CREATININE, serum 2.68 (0.66-1.25); PHOSPHOROUS 3.3 mg/dL (2.5-4.5); POTASSIUM 3.7 mmol/L (3.4-5.0)
--- NOTE | 2020-07-28 10:24 | NUR ---
SW met with the patient to follow up after the weekend. The patient was lying in bed and states that he is just trying to get some rest before his next therapy session. SW to continue to follow.
[2020-07-28 15:43] VITALS: BP 130/49; PULSE 75; TEMP 99.1
--- NOTE | 2020-07-28 18:17 | NUR ---
URINE SPECIMENT COLLECTED BY DAY SHIFT NURSE, JOHN ALVAREZ, AND SENT TO LAB PER D.O.
[2020-07-28 18:25] LABS: COLLECTION METHOD CLEAN CATCH
[2020-07-28 18:41] LABS: MUCOUS Present /lpf; PH 5 (5-8); SQUAMOUS EPITHELIAL None Seen /hpf; URINE APPEARANCE Hazy; URINE BACTERIA Rare /hpf; URINE BILIRUBIN Negative (NEGATIVE); URINE BLOOD Negative (NEGATIVE); URINE COLOR Yellow; URINE GLUCOSE Negative (NEGATIVE); URINE KETONE Negative (NEGATIVE); URINE LEUKOCYTE ESTERASE Negative (NEGATIVE); URINE NITRATE Negative (NEGATIVE); URINE PROTEIN(semi-quant) 1+ (NEGATIVE); URINE UROBILINOGEN Negative (NEGATIVE)
--- NOTE | 2020-07-28 19:07 | NUR ---
RECEIVED CHANGE OF SHIFT REPORT FROM DAY SHIFT NURSE.
--- NOTE | 2020-07-28 19:12 | NUR ---
PT GIVEN TWO 0.5 MG NORCOS TODAY FOR PAIN, HAS DENIED NEEDING SECOND HALF AFTER 45 MINUTE REASSESSMENT. PT'S SCROTUM HAS SEVERAL OPEN AREAS WHICH ZINC WAS APPLIED TO, BARRIER CREAM TO REST OF COCCYX, WHICH APPEARS PURPLE/RED NON BLANCHABLE. PT'S SHABNAM BANDAGES REWRAPPED TWICE TODAY FOR BLE EDEMA. UA COLLECTED, I.S. GIVEN AND EXPLAINED WHY GIVEN AND ENCOURAGED TO USE, EDUCATED ON CORRECT USE. PT HAS EATEN AN MOHAWK ICE AND TWO ENSURES TODAY, HAS REFUSED EVERYTHING ELSE. CRYSTAL ORDERED FOR DINNER AND REFUSED SO FAR TO EAT.
--- NOTE | 2020-07-28 20:03 | NUR ---
PATIENT UP IN CHAIR SAYING EVENING PRAYERS AT THIS TIME.
[2020-07-29 02:40] VITALS: BP 155/55; PULSE 72; TEMP 98
[2020-07-29 07:07] LABS: MEAN CELL VOLUME 90 fl (80.0-100.0); MEAN CORPUSCULAR HGB CONC 31 g/dl (33.0-37.0); MEAN PLATELET VOLUME 10.9 fl (7.4-10.4); PLATELET COUNT 307 K/mm3 (130-400); RED BLOOD COUNT 2.84 M/mm3 (4.20-5.60); REDCELL DISTRIBUTION WIDTH-CV 19.9 % (11.5-14.5)
[2020-07-29 07:15] LABS: CREATININE, serum 2.69 (0.66-1.25); POTASSIUM 3.8 mmol/L (3.4-5.0)
[2020-07-29 07:17] LABS: HEMATOCRIT 25.6 % (42.0-52.0); HEMOGLOBIN 7.9 g/dl (13.5-18.0); MEAN CORPUSCULAR HEMOGLOBIN 28 pg (27.0-31.0)
--- NOTE | 2020-07-29 07:21 | NUR ---
CHANGE OF SHIFT REPORT GIVEN TO DAY SHIFT NURSEJOHN RN
[2020-07-29 07:44] LABS: BAND 11 % (0-10); HYPOCHROMIA 1+; LYMPHOCYTE 7 % (20.0-51.0); MYELOCYTE 2 % (0-0); NEUTROPHILS 57 % (42.0-75.2); NUCLEATED RED BLOOD CELL 1 (0-6); OVALOCYTES 1+; PLATELET ESTIMATE NORMAL (NORMAL); SCHISTOCYTES 1+
[2020-07-29 07:45] LABS: METAMYELOCYTE 7 % (0-0)
[2020-07-29 17:17] VITALS: BP 145/52; PULSE 89; TEMP 98.3
--- NOTE | 2020-07-29 18:59 | NUR ---
PT RECEIEVED 0.5 OF NORCO THIS AM AND APAP THIS EVENING FOR LEG AND FEET PAIN. PT HAD NO OTHER COMPLAINTS TODAY. PT QUESTIONED WETHER HE WAS READY TO DISCHARGE ON TUESDAY. THERAPY WELL NURSING STAFF DISCUSSED THAT OUR GOAL IS THAT HE GOES HOME TO ATTEND HIS 'S AND IF HE AND HIS FAMILY NEED TO DISCUSS OTHER OPTIONS AT THAT TIME THEN THEY WILL BE ABLE TO.
--- NOTE | 2020-07-29 19:07 | NUR ---
RECEIVED CHANGE OF SHIFT REPORT FROM DAY SHIFT NURSE.
--- NOTE | 2020-07-29 20:00 | NUR ---
REPORTS INTERMITTENT NAUSEA, DECREASED APPETITE, TOLERATING SMALL AMOUNT OF LIQUIDS, REFUSED SUPPER TRAY. ACCESSED PORTACATH IN PLACE. BED ALARM ON WHEN IN BED.
[2020-07-30 04:50] VITALS: BP 154/51; PULSE 69; TEMP 98
--- NOTE | 2020-07-30 07:07 | NUR ---
CHANGE OF SHIFT REPORT GIVEN TO DAY SHIFT NURSE, ERIKA ALVAREZ.
--- NOTE | 2020-07-30 08:14 | NUR ---
Patient working with PT at this time. Takes pills whole with water. Pain left ankle. Refused pain meds. Will continue to monitor.
[2020-07-30 08:23] LABS: PATHOLOGY DIFF REVIEW OK +
--- NOTE | 2020-07-30 13:15 | NUR ---
Patient's port-a-cath was not getting blood return this morning so labs were held off till this afternoon. This nurse asked Flute Grinder, Kg to assist this nurse with patient's right arm manipulation to get the blood return for labs. Raising patient's right arm was successful with achieving the blood return. Labs were sent out.
[2020-07-30 13:25] LABS: MEAN CELL VOLUME 92 fl (80.0-100.0); MEAN CORPUSCULAR HGB CONC 31 g/dl (33.0-37.0); MEAN PLATELET VOLUME 10.4 fl (7.4-10.4); PLATELET COUNT 253 K/mm3 (130-400); RED BLOOD COUNT 2.98 M/mm3 (4.20-5.60); REDCELL DISTRIBUTION WIDTH-CV 20.3 % (11.5-14.5)
[2020-07-30 13:28] LABS: HEMATOCRIT 27.3 % (42.0-52.0); HEMOGLOBIN 8.4 g/dl (13.5-18.0); MEAN CORPUSCULAR HEMOGLOBIN 28 pg (27.0-31.0)
[2020-07-30 13:36] LABS: CALCIUM 8.8 mg/dL (8.4-10.2); CREATININE, serum 2.65 (0.66-1.25); POTASSIUM 4.2 mmol/L (3.4-5.0)
[2020-07-30 14:42] LABS: BAND 6 % (0-10); EOSINOPHIL 1 % (0-4); LYMPHOCYTE 3 % (20.0-51.0); NEUTROPHILS 78 % (42.0-75.2)
[2020-07-30 14:44] LABS: ANISOCYTOSIS 2+; HYPOCHROMIA 3+
[2020-07-30 14:45] LABS: OVALOCYTES 1+; PLATELET ESTIMATE NORMAL (NORMAL)
[2020-07-30 14:49] LABS: SCHISTOCYTES 1+
--- NOTE | 2020-07-30 14:50 | NUR ---
Dressings changed to patients bilateral lower extremities with the following findings: #1 Lt heel 1.5 cm x 1 cm oblong shape scabbed area #2 Lt achilles area 2 cm x 4.5 cm scabbed area - very painful following working with therapy #3 Rt heel 1cm x 1 cm round scabbed area #4 Rt heel 4 cm x 5 cm round black Deep Tissue Injury that is unstageable. #5 Rt posterior calf scabbed area 1.5 cm x 0.7 cm round #6 Rt posterior calf superior to #5 wound scabbed area 1.5 cm x 0.7 cm. Coccyx and bottom are both excoriated and bleeding this morning. Applied zinc. Scrotom red and patient reports very itchy. Zinc applied to that area. Groin slight redness - Washed area, patted dry and applied desenex to area.
[2020-07-30 15:18] VITALS: BP 142/56; PULSE 74; TEMP 97.7
--- NOTE | 2020-07-30 16:13 | NUR ---
ELENITA contacted the patient's son, Kg, to review the d/c plan for tomorrow, 07/31. Kg reports no concerns with the d/c plan. He will be headed to [place] [facility]. He states that he has [facility] coming in on , [facility], and then [facility] coming in as well. ELENITA met with the patient to present and review the IPR Team Conference Note. The patient had no concerns for d/c. ELENITA presented and read the IM form outloud to him. The patient verbalized understanding and signed the form. SW provided him with a copy.
--- NOTE | 2020-07-30 17:08 | NUR ---
Patient used the call light requiring two staff to assist him with sitting up further in his recliner. He had scooted himself down to far in the chair when he was sleeping. Patient is currently resting in his recliner, call light in reach and alarm set. Will continue to monitor.
--- NOTE | 2020-07-30 19:00 | NUR ---
PT SITTING UP IN RECLINER/ FRUSTRATED USING IPHONE. NO NEEDS AT THIS TIME. PT AGREEABLE TO DC SANDOVAL NEEDLE IN AM FROM [facility] FOR DISCHARGE. CALL LIGHT IN REACH. BED ALARM SET.
[2020-07-31 05:22] VITALS: BP 141/56; PULSE 71; TEMP 97.7
[2020-07-31] MEDS ORDERED: NORVASC 5MG5 MG/TAB PO (12:13)
[2020-07-31] MEDS ORDERED: NORCO 325 MG-51 TAB PO (12:14)
--- NOTE | 2020-07-31 12:20 | NUR ---
Patient was given a full bed bath this morning and lotion applied to back and bilateral legs around healing scabbed areas. Patient's groin and buttocks continues to be excoriated and zinc was applied. Patient reports pain to the tip of his penis and it looks as if there is yeast that has developed around it. Patient was seen by provider this morning and she will be ordering an ointment to be applied to this area. His pannus area is only light pink at this time and zinc was applied to that area as well. Patient continues to report itching all over at times, with lotion and zinc keeping it at bay at this time. Patient's bilateral lower leg and heel wounds were measured and covered yesterday 07/30/20. No drainage observed to those areas as they are all scabbed over. Mepilex was applied to those areas for protection. Patient has a port-a-cath to his right chest and it was deaccessed last night by night time nanny nurse. This nurse has worked with patient on scheduling f/u discharge appointments.
[2020-07-31] MEDS ORDERED: DESENEX TP (12:24)
[2020-07-31] MEDS ORDERED: FOLIC ACID 11 MG/TA1 PO (12:24)
[2020-07-31] MEDS ORDERED: B-121000 MCG PO (12:25)
[2020-07-31] MEDS ORDERED: MICATIN2% TP (12:27)
[2020-07-31] MEDS ORDERED: DUO-KAPS1 CAP PO (12:27)
--- NOTE | 2020-07-31 14:17 | NUR ---
The patient's RN notified ELENITA and the team that she has concerns with the patient returning back home. She reports that she spoke to the patient's PCP, Roberta, at the [facility] and Roberta was also concerned about the patient returning home. ELENITA contacted the patient's son, Kg, and set up a patient/family meeting before the patient discharges. ELENITA addressed these concerns with Kg. Kg reports that he will be staying with the patient until next Tuesday. He will be gone for a few days and return next Tuesday. He states that he will then be staying with the patient again for a long while. He confirms that [facility] [place] with being coming in M/W/F, [facility] on the other days, with the bathaide from the [place] twice a week. He would like to keep the patient in the home for as long as possible. ELENITA informed Kg that the patient does have a thirty day window to go to a SNF, if the patient is declining at home. Kg verbalized understanding. The patient's son, Kg, then arrived to the hospital. ELENITA, PT, OT, and the patient's RN met with the the patient and Kg for the family meeting. PT discussed the patient's progress and how she would recommend the patient have supervision when getting around. OT informed Kg how she would recommend supervision for any bathing. Kg verbalized understanding. He confirms that the patient will have supervision with bathing and he will have [facility] coming in. The team answered all questions. Kg had no concerns for the team. The patient is to discharge back home today, 07/31, with home health services for fpc/PT/OT/woundcare from [facility] [place], private duty services from [address] [place] [address], a bathaide from the [place], and support from his son. ELENITA notified and faxed d/c orders to [facility] [place]. No additional needs at this time.
--- NOTE | 2020-07-31 20:07 | NUR ---
Patient & son Kg had a brief meeting with OT/PT and Social Work and this RN regarding home cares that would be required for patient upon discharge. Son was able to observe his fathers current skin condition and was briefed on current medications and follow up appointments. Patient was wheeled out via wheelchair by Emilia/RN and seat belted in his sons car for a ride home.
--- NOTE | 2020-08-01 13:02 | NUR ---
The patient's RN yesterday left a note for to contact the patient's son, Kg. He was interested in the contact information for [facility]. ELENITA contacted Kg. Kg reports that he took the patient to the [place] today and that he is okay. Kg asked ELENITA how the thirty day window for SNF looks like again. ELENITA informed him that the patient has thirty days from yesterday for the patient's Medicare to cover for a skilled stay. Kg reports that he notices that the patient is weaker and would like to go ahead and start the process for SNF. He reports that he would like the patient to transition to SNF on Tuesday, 08/04. He prefers [facility]. ELENITA informed Kg that the patient would need a COVID test before going to a SNF and encouraged him to reach out to the patient's PCP to get an order for the test. Kg verbalized understanding. ELENITA contacted and faxed a referral to Anita at [facility]. Anita reports that they are unable to consider the patient at this time. 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 Anita reports that she reached out to Dr. Hay's RN, Darline, and Darline would need to check with Dr. Hay. Darline informed Anita that it sounded like Dr. Hay would want to start treatment again though soon. ELENITA contacted Kg and updated him on the above. Kg reports that the patient's that just passed, was at [facility]. He reports that he has spoken to them in the past about options for the patient and would also prefer them for SNF. He reports that he also talked to the patient and the patient would like to go ahead and pursue SNF as well. ELENITA contacted and emailed a referral to Lashonda at [facility]. Lashonda confirms that she has been in contact with the patient and Kg. She reports that the team will have to review the referral, but that she will be in contact with Kg.
--- NOTE | 2020-08-01 14:51 | NUR ---
Discharge QIM scores were reviewed by the team. Code of 5 chosen for eating was determined by team discussion to be the most usual performance for this patient during the assessment period. Code of 6 chosen for oral hygiene was determined by team discussion to be the most usual performance for this patient during the assessment period. Code of 4 chosen for toilet transfers was determined by team discussion to be the most usual performance for this patient during the assessment period. Code of 5 chosen for putting on/taking off footwear was determined by team discussion to be the most usual performance for this patient during the assessment period. Code of 3 chosen for sit to lying was determined by team discussion to be the most usual performance for this patient during the assessment period. Code of 3 chosen for lying to sitting side of bed was determined by team discussion to be the most usual performance for this patient during the assessment period. Code of 3 chosen for sit to stand was determined by team discussion to be the most usual performance for this patient during the assessment period. Code of 4 chosen for chair/bed to chair transfer was determined by team discussion to be the most usual performance for this patient during the assessment period. Code of 5 chosen for eating was determined by team discussion to be the most usual performance for this patient during the assessment period.
--- NOTE | 2020-08-01 16:22 | NUR ---
Anita, at [facility], reports that they were able to speak to Dr. Hay. Dr. Hay would like for the patient to get more rehab before treatment again. Anita reports that she has talked to the patient's son and they plan on admitting the patient to their SNF tomorrow, 08/02. No additional needs at this time.
== END 2020-07-31 15:10 | disposition home health service (06) | DRG 291 ==
PROVIDERS: Internal Medicine Nephrology; Physician Assistant; ADMIT Internal Medicine
DX: I13.0 Hypertensive heart and chronic kidney disease with heart failure and stage 1 through stage 4 chronic kidney disease, or unspecified chronic kidney disease (principal); J18.9 Pneumonia, unspecified organism; I50.33 Acute on chronic diastolic (congestive) heart failure; L03.115 Cellulitis of right lower limb; N17.9 Acute kidney failure, unspecified; C96.6 Unifocal Langerhans-cell histiocytosis; I48.91 Unspecified atrial fibrillation; I25.10 Atherosclerotic heart disease of native coronary artery without angina pectoris; E11.42 Type 2 diabetes mellitus with diabetic polyneuropathy; E11.22 Type 2 diabetes mellitus with diabetic chronic kidney disease; E11.51 Type 2 diabetes mellitus with diabetic peripheral angiopathy without gangrene; N18.32 Chronic kidney disease, stage 3b; E03.9 Hypothyroidism, unspecified; L89.611 Pressure ulcer of right heel, stage 1; L98.419 Non-pressure chronic ulcer of buttock with unspecified severity; K22.5 Diverticulum of esophagus, acquired; D63.1 Anemia in chronic kidney disease; D69.6 Thrombocytopenia, unspecified; M50.30 Other cervical disc degeneration, unspecified cervical region; N40.0 Benign prostatic hyperplasia without lower urinary tract symptoms; R59.1 Generalized enlarged lymph nodes; G47.00 Insomnia, unspecified; R53.81 Other malaise; Z79.4 Long term (current) use of insulin; Z79.01 Long term (current) use of anticoagulants; Z95.0 Presence of cardiac pacemaker; Z91.81 History of falling; Z87.891 Personal history of nicotine dependence; Z88.8 Allergy status to other drugs, medicaments and biological substances
CPT/HCPCS: 99222-AI; 99231-AI; 99232-AI; 99233-AI; 99239; A9284; J1815; J2916; J3420; J7030

== ENCOUNTER → 2020-08-02 | Outpatient (REF) ==
[~2020-08-02] MED LIST changes: +B-121000 MCG PO; +DUO-KAPS1 CAP PO; +LIDO2%GEL TOP; +MICATIN2% TP; +NORVASC 5MG5 MG/TAB PO; +PROTONIX 40MG T40 MG PO
[2020-08-02 16:43] LABS: MEAN CELL VOLUME 93 fl (80.0-100.0); MEAN CORPUSCULAR HGB CONC 31 g/dl (33.0-37.0); MEAN PLATELET VOLUME 11.2 fl (7.4-10.4); PLATELET COUNT 193 K/mm3 (130-400); RED BLOOD COUNT 2.99 M/mm3 (4.20-5.60)
[2020-08-02 16:55] LABS: ALBUMIN 2.4 gm/dL (3.5-5.0); BILIRUBIN,TOTAL 0.5 mg/dL (0.0-1.0); CALCIUM 8.8 mg/dL (8.4-10.2); CREATININE, serum 3.19 (0.66-1.25); POTASSIUM 4.6 mmol/L (3.4-5.0)
[2020-08-02 16:57] LABS: HEMATOCRIT 27.7 % (42.0-52.0); HEMOGLOBIN 8.5 g/dl (13.5-18.0); MEAN CORPUSCULAR HEMOGLOBIN 28 pg (27.0-31.0)
[2020-08-02 17:01] LABS: ANISOCYTOSIS 2+; BAND 4 % (0-10); EOSINOPHIL 1 % (0-4); HYPOCHROMIA 1+; LYMPHOCYTE 2 % (20.0-51.0); METAMYELOCYTE 5 % (0-0); MYELOCYTE 1 % (0-0); NEUTROPHILS 75 % (42.0-75.2); PLATELET ESTIMATE NORMAL (NORMAL)
== END ==
LOC: ZCOL.LAB 16:36
PROVIDERS: Internal Medicine
DX: C96.6 Unifocal Langerhans-cell histiocytosis (principal); E87.1 Hypo-osmolality and hyponatremia; D63.8 Anemia in other chronic diseases classified elsewhere

== ENCOUNTER → 2020-08-08 | Outpatient (CLI) | payer MEDICARE, BC | LOC: COL.RAD 10:50 | DX: C96.6 Unifocal Langerhans-cell histiocytosis (principal); J90 Pleural effusion, not elsewhere classified; I31.3 Pericardial effusion (noninflammatory); R59.0 Localized enlarged lymph nodes; R18.8 Other ascites; Z95.1 Presence of aortocoronary bypass graft ==

== ENCOUNTER → 2020-08-11 | Outpatient (CLI) | payer MEDICARE, BC ==
[2020-08-11 09:33] LABS: MEAN CELL VOLUME 94 fl (80.0-100.0); MEAN CORPUSCULAR HGB CONC 32 g/dl (33.0-37.0); MEAN PLATELET VOLUME 10.7 fl (7.4-10.4); PLATELET COUNT 327 K/mm3 (130-400); RED BLOOD COUNT 2.65 M/mm3 (4.20-5.60); REDCELL DISTRIBUTION WIDTH-CV 23.4 % (11.5-14.5)
[2020-08-11 09:40] LABS: BILIRUBIN,TOTAL 1.9 mg/dL (0.0-1.0); CALCIUM 8.4 mg/dL (8.4-10.2); CREATININE, serum 3.5 (0.66-1.25); POTASSIUM 4.5 mmol/L (3.4-5.0); TOTAL PROTEIN 4.4 gm/dL (6.4-8.2)
[2020-08-11 10:00] LABS: HEMATOCRIT 24.8 % (42.0-52.0); HEMOGLOBIN 7.8 g/dl (13.5-18.0); MEAN CORPUSCULAR HEMOGLOBIN 29 pg (27.0-31.0)
[2020-08-11 10:46] LABS: ANISOCYTOSIS 2+; EOSINOPHIL 3 % (0-4); LYMPHOCYTE 1 % (20.0-51.0); NEUTROPHILS 82 % (42.0-75.2); PLATELET ESTIMATE NORMAL (NORMAL)
[2020-08-11 10:47] LABS: HYPOCHROMIA 2+; OVALOCYTES 1+; SCHISTOCYTES 1+
[2020-08-11 10:48] LABS: BAND 12 % (0-10); TOXIC GRANULATION PRESENT
[2020-08-12 08:07] LABS: PATHOLOGY DIFF REVIEW OK
== END ==
LOC: ZCOL.LAB 09:17
PROVIDERS: Internal Medicine
DX: C69.60 Malignant neoplasm of unspecified orbit (principal)